=== PATIENT | female | born 1945 | race Caucasian/White ===

== ENCOUNTER 2017-12-12 16:01 | Outpatient (RCR) | payer MEDICARE, OTHER, SELFPAY ==
--- NOTE | 2017-12-12 17:52 | PT.OIE ---
Current Diagnoses Stiffness of right knee, not elsewhere classified (12/12/17) Stiffness of left ankle, not elsewhere classified (12/12/17) Muscle weakness (generalized) (12/12/17) Other abnormalities of gait and mobility (12/12/17) Presence of right artificial knee joint (12/12/17) Presence of left artificial ankle joint (12/12/17) Provider Visit Care Team Role Provider Type Raghavendra Deleon MD Family Provider Physician Primary Care Provider Specialty: Internal Medicine Address: [address] [place] [address], [id number] Email: Yan Main MD Attending Provider Non-Staff Referring Provider Specialty: Medical Address: [address] [place] [address], [id number] Email: Physical Therapy Initial Evaluation PT-OP-A Visit Information Start: 12/12/17 16:52 Freq: Status: Active Protocol: Document 12/12/17 16:10 DCW (Rec: 12/12/17 17:52 DC [id number]) Out-Patient Physical Therapy Visit Information Visit Information Visit Type Initial Evaluation Visit Note Pt at [facility] after receiving PT while in SNF Visit Start Time 16:10 Visit Stop Time 16:45 Total Visit Minutes 35 Visit Number 1 Number of DATA CENTER OPERATOR Visits 0 Evaluation Information Evaluation Date 12/12/17 PT-OP-B Current Condition Start: 12/12/17 16:52 Freq: Status: Active Protocol: Document 12/12/17 16:10 DCW (Rec: 12/12/17 17:52 DCW [id number]) Current Condition History of Current Condition Onset Date 07/05/17 Current Complaints Knee stiffness and weakness, ankle stiffness and weakness, gait difficulty History of Current Condition Pt is a 72 year old female who underwent a R TKA on 07/05/17. Pt reports that she twisted her knee on 06/18/17, and after going to the hospital, was discharged to an assisted living facility until the date of her surgery. Her TKA also reportedly required a tendon replacement, and she was therefore NWB for 3 months following her surgery, and was living in [facility]. She began weight- bearing on 4/18/18, and reports she was attending PT 2x/week while living there. Unfortunately, she discharged from [facility] when her daughter recently , and she returned home two weeks ago, and admits she has not been keeping up with her HEP, but will get back to her normal routine. Complicating her recovery is the fact that she is has been using a SPC over the past 5 years s/p left ankle replacement. Pt currently wears an AFO for stability. 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 Prior Treatments and Tests PT while at [facility] SN[facility] Treatment Goals Patient/Caregiver Goals Really, my only goal is to walk without this cane. Prior Functional Status Baseline Function- Gait Ambulation with SPC, occasional use of FWW at home. Baseline Function- Other Pt lives alone, has a screw machine tender come on Tuesdays for cleaning, and has someone come help with housework three times a week. Current Functional Impairments (Reported) Functional Limitations- Mobility/Gait Difficulty sequencing SPC, Trendelenberg gait pattern, bilateral foot external rotation PT-OP-C Subjective Start: 12/12/17 16:52 Freq: Status: Active Protocol: Document 12/12/17 16:10 DCW (Rec: 12/12/17 17:52 DCW [id number]) OP-PT Pain Assessment Pain Assessment Grid Paper Pain Assessment Grid Completed No PT-OP-G Mobility & Gait Start: 12/12/17 16:52 Freq: Status: Active Protocol: Document 12/12/17 16:10 DCW (Rec: 12/12/17 17:52 DCW [id number]) OP Gait Assessment Gait Gait Assistance Required: Contact Guard Assist Distance (Feet) (feet) 150 Able to Maintain Weight Bearing Status Yes During Gait Assistive Devices Assistive Device Gait Belt Straight Cane Orthotic/Prosthetic Devices or Brace: Yes Gait Deviations General Gait Pattern Antalgic Decreased Stride Length Decreased Feet Clearance Lateral Trunk Lean Factors Limiting Gait Function Factors Limiting Gait Function Decreased Strength Limited Range of Motion Poor Balance PT-OP-K Range of Motion Start: 12/12/17 16:52 Freq: Status: Active Protocol: Document 12/12/17 16:10 DCW (Rec: 12/12/17 17:52 DCW [id number]) Knee Goniometric Range of Motion Knee Measured in Degrees Right Patient Position Supine Flexion Active (degrees) 114 Flexion Passive (degrees) 122 Extension Active (degrees) 0 Extension Passive (degrees) 0 Knee ROM Limitations Knee ROM Limitations Soft Tissue Tightness Pain Swelling PT-OP-M Strength Start: 12/12/17 16:52 Freq: Status: Active Protocol: Document 12/12/17 16:10 DCW (Rec: 12/12/17 17:52 DCW [id number]) Hip Strength Hip Manual Muscle Testing Right Flexion (L2) 4- Good- Abduction 5 Normal Adduction 5 Normal Left Flexion (L2) 4 Good Abduction 5 Normal Adduction 5 Normal Knee Strength Knee Manual Muscle Testing Right Flexion (S2) 4+ Good+ Extension (L3) 4 Good Left Flexion (S2) 5 Normal Extension (L3) 5 Normal PT-OP-T Assessment and Plan Start: 12/12/17 16:52 Freq: Status: Active Protocol: Document 12/12/17 16:10 DCW (Rec: 12/12/17 17:52 DCW [id number]) Physical Therapy Assessment Rehab Potential Rehabilitation Potential Good Evaluation Complexity Number of Personal Factors/Comorbidities 3 or More Number of Body Systems Impaired 4 or More Clinical Presentation at Evaluation Unstable Impairments Impairments Activity Tolerance Balance Coordination Functional Activities Gait Posture ROM Soft Tissue Mobility Strength Other Concerns Fall Risk Moderate Barriers to Rehabilitation High fear of falling, poor cane sequencing, previous left ankle replacement, scoliosis, extended NWB recovery following TKA Goals Four Impairment Gait Short Term Goal (STG) Pt to ambulate with correct sequencing using SPC 100% of the time STG Duration 12/26/17 Repeat Chief Goal (LTG) Pt to eliminate trendelenberg gait pattern LTG Duration 02/06/18 Three Impairment Strength Correction Goal (LTG) Pt LE MMT Grossly 4+/5 LTG Duration 02/06/18 Two Impairment Knee ROM Correction Goal (LTG) Pt to display right knee active flexion to 125? and passive flexion to 135? LTG Duration 02/06/18 One Impairment [place] on SPC Short Term Goal (STG) Pt to ambulate 200' SPA without assistive devices STG Duration 01/09/18 Repeat Chief Goal (LTG) Pt to ambulate community distances independently LTG Duration 02/06/18 Assessment Summary Assessment Pt presents six months s/p R TKA, including being NWB over the first three months of recovery. Pt has mildly limited ROM and strength, and gait deficiencies secondary to her right knee replacement, a left ankle replacement (s/p 5 years), scoliosis causing a leg-length discrepancy, and a trendelenberg gait pattern. Patient reports her only goal is to ambulate without her cane, although she has been using it for the past five years, ever since her ankle replacement. Additionally, pt uses an ankle brace for left ankle stability, and displays a significant fear of falling, as demonstrated by her requesting assistance to walk to and from her vehicle in the parking lot. Pt should benefit from skilled therapy focusing on strength and ROM, as well as gait and balance training. Physical Therapy Plan Frequency and Duration Frequency of Treatment 2x/Week Duration of Treatment 12 weeks Plan of Care Start Date 12/12/17 Plan of Care End Date 03/06/18 Therapeutic Interventions Therapeutic Interventions Aquatic Therapy Balance Training Gait Training Home Exercise Program Joint Mobilizations Manual Therapy Patient/Caregiver Education Self-Care/Home Management Soft Tissue Mobilization Therapeutic Activities Therapeutic Exercises Modalities Cold Pack/Ice Massage Electric Stimulation Hot Packs Ultrasound Next Visit Focus/Plan Next Note Type Treatment Note Next Visit Plan Strengthening, Balance training, gait training.
--- NOTE | 2017-12-12 17:53 | PT.OPPOC ---
Current Diagnoses Stiffness of right knee, not elsewhere classified (12/12/17) Stiffness of left ankle, not elsewhere classified (12/12/17) Muscle weakness (generalized) (12/12/17) Other abnormalities of gait and mobility (12/12/17) Presence of right artificial knee joint (12/12/17) Presence of left artificial ankle joint (12/12/17) Provider Visit Care Team Role Provider Type Raghavendra Deleon MD Family Provider Physician Primary Care Provider Specialty: Internal Medicine Address: [address] [place] [address], [id number] Email: Yan Main MD Attending Provider Non-Staff Referring Provider Specialty: Medical Address: [address] [place] [address], [id number] Email: Plan Of Care PT-OP-T Assessment and Plan Start: 12/12/17 16:52 Freq: Status: Active Protocol: Document 12/12/17 16:10 DCW (Rec: 12/12/17 17:52 DCW [id number]) Physical Therapy Assessment Rehab Potential Rehabilitation Potential Good Evaluation Complexity Number of Personal Factors/Comorbidities 3 or More Number of Body Systems Impaired 4 or More Clinical Presentation at Evaluation Unstable Impairments Impairments Activity Tolerance Balance Coordination Functional Activities Gait Posture ROM Soft Tissue Mobility Strength Other Concerns Fall Risk Moderate Barriers to Rehabilitation High fear of falling, poor cane sequencing, previous left ankle replacement, scoliosis, extended NWB recovery following TKA Goals Four Impairment Gait Short Term Goal (STG) Pt to ambulate with correct sequencing using SPC 100% of the time STG Duration 12/26/17 Group Home Goal (LTG) Pt to eliminate trendelenberg gait pattern LTG Duration 02/06/18 Three Impairment Strength Group Home Goal (LTG) Pt LE MMT Grossly 4+/5 LTG Duration 02/06/18 Two Impairment Knee ROM Draw[employer] In [employer] Goal (LTG) Pt to display right knee active flexion to 125? and passive flexion to 135? LTG Duration 02/06/18 One Impairment [place] on SPC Short Term Goal (STG) Pt to ambulate 200' SPA without assistive devices STG Duration 01/09/18 [employer] In [employer] Goal (LTG) Pt to ambulate community distances independently LTG Duration 02/06/18 Assessment Summary Assessment Pt presents six months s/p R TKA, including being NWB over the first three months of recovery. Pt has mildly limited ROM and strength, and gait deficiencies secondary to her right knee replacement, a left ankle replacement (s/p 5 years), scoliosis causing a leg-length discrepancy, and a trendelenberg gait pattern. Patient reports her only goal is to ambulate without her cane, although she has been using it for the past five years, ever since her ankle replacement. Additionally, pt uses an ankle brace for left ankle stability, and displays a significant fear of falling, as demonstrated by her requesting assistance to walk to and from her vehicle in the parking lot. Pt should benefit from skilled therapy focusing on strength and ROM, as well as gait and balance training. Physical Therapy Plan Frequency and Duration Frequency of Treatment 2x/Week Duration of Treatment 12 weeks Plan of Care Start Date 12/12/17 Plan of Care End Date 03/06/18 Therapeutic Interventions Therapeutic Interventions Aquatic Therapy Balance Training Gait Training Home Exercise Program Joint Mobilizations Manual Therapy Patient/Caregiver Education Self-Care/Home Management Soft Tissue Mobilization Therapeutic Activities Therapeutic Exercises Modalities Cold Pack/Ice Massage Electric Stimulation Hot Packs Ultrasound Next Visit Focus/Plan Next Note Type Treatment Note Next Visit Plan Strengthening, Balance training, gait training. Plan of Care Dates Plan of Care Start Date 12/12/17 Plan of Care End Date 03/06/18 Please Sign and Return: I have reviewed this Plan of Care and certify that the skilled therapy services above are required to meet the patient?s needs. Physician Signature Date Printed Name and Credentials Clinical Instructor Signature Printed Name and Credentials
--- NOTE | 2018-03-25 11:56 | PT.OPDS ---
Current Diagnoses Stiffness of right knee, not elsewhere classified (12/12/17) Stiffness of left ankle, not elsewhere classified (12/12/17) Muscle weakness (generalized) (12/12/17) Other abnormalities of gait and mobility (12/12/17) Presence of right artificial knee joint (12/12/17) Presence of left artificial ankle joint (12/12/17) Provider Visit Care Team Role Provider Type Raghavendra Deleon MD Family Provider Physician Primary Care Provider Specialty: Internal Medicine Address: [address] [place] [address], [id number] Email: Yan Main MD Attending Provider Non-Staff Referring Provider Specialty: Medical Address: [address] [place] [address], [facility] Email: Visit Number Visit Number 1 Discharge Summary PT-OP-B Current Condition Start: 12/12/17 16:52 Freq: Status: Active Protocol: Document 12/12/17 16:10 DCW (Rec: 12/12/17 17:52 DCW [id number]) Current Condition History of Current Condition Onset Date 07/05/17 Current Complaints Knee stiffness and weakness, ankle stiffness and weakness, gait difficulty History of Current Condition Pt is a 72 year old female who underwent a R TKA on 07/05/17. Pt reports that she twisted her knee on 06/18/17, and after going to the hospital, was discharged to an assisted living facility until the date of her surgery. Her TKA also reportedly required a tendon replacement, and she was therefore NWB for 3 months following her surgery, and was living in [facility]. She began weight- bearing on 10/03/17, and reports she was attending PT 2x/week while living there. Unfortunately, she discharged from [facility] when her daughter recently , and she returned home two weeks ago, and admits she has not been keeping up with her HEP, but will get back to her normal routine. Complicating her recovery is the fact that she is has been using a SPC over the past 5 years s/p left ankle replacement. Pt currently wears an AFO for stability. 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 Prior Treatments and Tests PT while at [facility] Treatment Goals Patient/Caregiver Goals Really, my only goal is to walk without this cane. Prior Functional Status Baseline Function- Gait Ambulation with SPC, occasional use of FWW at home. 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 Current Functional Impairments (Reported) Functional Limitations- Mobility/Gait Difficulty sequencing SPC, Trendelenberg gait pattern, bilateral foot external rotation PT-OP-C Subjective Start: 12/12/17 16:52 Freq: Status: Active Protocol: Document 12/12/17 16:10 DCW (Rec: 12/12/17 17:52 DCW [id number]) OP-PT Pain Assessment Pain Assessment Grid Paper Pain Assessment Grid Completed No PT-OP-G Mobility & Gait Start: 12/12/17 16:52 Freq: Status: Active Protocol: Document 12/12/17 16:10 DCW (Rec: 12/12/17 17:52 DCW [id number]) OP Gait Assessment Gait Gait Assistance Required: Contact Guard Assist Distance (Feet) 150 Able to Maintain Weight Bearing Status Yes During Gait Assistive Devices Assistive Device Gait Belt Straight Cane Orthotic/Prosthetic Devices or Brace: Yes Gait Deviations General Gait Pattern Antalgic Decreased Stride Length Decreased Feet Clearance Lateral Trunk Lean Factors Limiting Gait Function Factors Limiting Gait Function Decreased Strength Limited Range of Motion Poor Balance PT-OP-K Range of Motion Start: 12/12/17 16:52 Freq: Status: Active Protocol: Document 12/12/17 16:10 DCW (Rec: 12/12/17 17:52 DCW [id number]) Knee Goniometric Range of Motion Knee Measured in Degrees Right Patient Position Supine Flexion Active (degrees) 114 Flexion Passive (degrees) 122 Extension Active (degrees) 0 Extension Passive (degrees) 0 Knee ROM Limitations Knee ROM Limitations Soft Tissue Tightness Pain Swelling PT-OP-M Strength Start: 12/12/17 16:52 Freq: Status: Active Protocol: Document 12/12/17 16:10 DCW (Rec: 12/12/17 17:52 DCW [id number]) Hip Strength Hip Manual Muscle Testing Right Flexion (L2) 4- Good- Abduction 5 Normal Adduction 5 Normal Left Flexion (L2) 4 Good Abduction 5 Normal Adduction 5 Normal Knee Strength Knee Manual Muscle Testing Right Flexion (S2) 4+ Good+ Extension (L3) 4 Good Left Flexion (S2) 5 Normal Extension (L3) 5 Normal PT-OP-T Assessment and Plan Start: 12/12/17 16:52 Freq: Status: Active Protocol: Document 03/25/18 11:54 DCW (Rec: 03/25/18 11:56 DCW [id number]) Physical Therapy Assessment Goals Four Impairment Gait Short Term Goal (STG) Pt to ambulate with correct sequencing using SPC 100% of the time STG Duration 12/26/17 Medical Interpreter Goal (LTG) Pt to eliminate trendelenberg gait pattern LTG Duration 02/06/18 Three Impairment Strength Medical Interpreter Goal (LTG) Pt LE MMT Grossly 4+/5 LTG Duration 02/06/18 Two Impairment Knee ROM Half-Way Goal (LTG) Pt to display right knee active flexion to 125? and passive flexion to 135? LTG Duration 02/06/18 One Impairment [place] on SPC Short Term Goal (STG) Pt to ambulate 200' SPA without assistive devices STG Duration 01/09/18 Half-Way Goal (LTG) Pt to ambulate community distances independently LTG Duration 02/06/18 Physical Therapy Plan Discharge Physical Therapy Discharge Reasons No Longer Attending PT Discharge Comments Following her initial evaluation, pt cancelled all scheduled appointments, and has now not been seen in more than three months. Pt will be discharged from skilled therapy at this time.
== END 2018-03-29 15:52 ==
LOC: PHYS 16:01
PROVIDERS: Family Provider Internal Medicine; PCP Internal Medicine; Referring Provider Orthopaedic Surgery; Visit Provider Orthopaedic Surgery
DX: Z96.651 Presence of right artificial knee joint (principal); M62.81 Muscle weakness (generalized); R26.89 Other abnormalities of gait and mobility; M25.672 Stiffness of left ankle, not elsewhere classified; M25.661 Stiffness of right knee, not elsewhere classified; Z96.662 Presence of left artificial ankle joint
CPT/HCPCS: 97163

== ENCOUNTER 2018-03-07 20:10 | Inpatient (IN) | payer MEDICARE, OTHER, SELFPAY ==
[2018-03-07 20:17] VITALS: BP 169/81; PULSE 67; RESP 20; TEMP 36.6; O2SAT 99
--- NOTE | 2018-03-07 20:30 | ED.WEAKNESS ---
HPI - Weakness General Chief complaint: Weakness Stated complaint: Weakness Time Seen by Provider: 03/07/18 20:16 Source: family and EMS Mode of arrival: EMS History of Present Illness HPI Narrative: Patient is a 72-year-old female who was brought in by EMS for weakness. She is a poor historian. According to friends she has been sitting on her toilet for probably over 24 hr. No evidence of falling. For the last 2 days she has not had anything to eat or drink or taken any of her medications it is possible she has been on toilet for 2 days. Her son does live in [place]. She does have a history of depression her daughter suddenly in October and she has not quite been the same. She denies any suicidal ideations. She really has no complaints. Although she does fall asleep frequently during our conversation. I did discuss with the son. He says that she was seen recently by primary care provider this week and medications were changed. Patient says that she was taken off her anxiety medications and the son thinks maybe blood pressure medications were adjusted. Son said that he was speaking to her last evening on the cell phone and she was up and moving around. She overall just feels as and could not get herself up off the toilet. She does require a brace on her left ankle which she said she did not have at the time which also contributed to her inability to get up. MD Complaint: generalized weakness Related Data Home Medications Medication Instructions Recorded Confirmed LEVOTHYROXINE SODIUM (#LEVOTHROID 0.15 mg PO QDAY #0 12/19/11 02/19/18 [facility]) levothyroxine 150 mcg capsule 150 mcg PO DAILY 12/18/17 02/19/18 Previous Rx's Medication Instructions Recorded meloxicam [Mobic] 15 mg PO QDAY #30 tab 01/20/17 nitrofurantoin monohyd/m-cryst 100 mg PO BID #14 cap 06/16/17 [Macrobid] oxycodone 0 mg PO Q4HP PRN #40 tab 06/19/17 imipramine HCl [Tofranil] 200 mg PO HS #120 tab 07/02/17 temazepam 15 mg capsule 15 mg PO BEDTIME #60 cap 02/08/18 bupropion HCl XL 150 mg 24 hr 150 mg PO QAM #30 tab 02/25/18 tablet, extended release Allergies Allergy/AdvReac Type Severity Reaction Status Date / Time ciprofloxacin Allergy Mild Verified 03/07/18 22:39 Sulfa (Sulfonamide Allergy Mild Verified 03/07/18 22:39 Antibiotics) Beta-Blockers Allergy Unknown Verified 03/07/18 22:39 (Beta-Adrenergic Bloc zolpidem [ZOLPIDEM] AdvReac Intermediate MAKES ME Verified 03/07/18 22:39 GOOFY Review of Systems Review of Systems All systems reviewed & are unremarkable except as noted in HPI and below Constitutional Denies chills, Denies fever(s) and Reports poor appetite Eyes Denies change in vision, Denies eye discharge, Denies irritation and Denies loss of vision Cardiovascular Denies chest pain, Denies irregular heart rhythm, Denies lightheadedness, Denies palpitations and Denies orthopnea Gastrointestinal Gastrointestinal: Denies abdominal pain, Denies change in bowel habits, Denies diarrhea, Denies nausea and Denies vomiting Musculoskeletal Denies back pain, Denies muscle weakness, Denies numbness and Denies tingling Integumentary/Breasts Denies pruritus, Denies erythema, Denies rash and Denies wounds Neurologic Denies loss of vision, Denies numbness and Denies tingling Endocrine Denies palpitations PFSH Medical History Depression (Acute) Hypothyroid (Acute) Social History household members: none lives independently: Yes caregiver/support person: No Smoking Status: Never smoker alcohol intake: never Exam Initial Vital Signs Initial Vital Signs: Vital Signs Temperature 97.9 F 03/07/18 20:17 Pulse Rate 67 03/07/18 20:17 Respiratory Rate 20 03/07/18 20:17 Blood Pressure 169/81 H 03/07/18 20:17 Pulse Oximetry 99 03/07/18 20:17 Const General: frail appearing Nutritional Appearance: average body habitus Orientation: confused [facility] Head: normal to inspection, normocephalic and atraumatic Eyes General: appearance normal, both eyes and all related structures Pupils: PERRL EOM: EOM intact bilaterally Neck Neck: normal visual inspection, full ROM and no meningeal signs Chest Chest: normal inspection of the chest and normal palpation of entire chest wall Resp Effort & Inspection: normal respiratory effort Auscultation: clear to auscultation bilaterally, no rales, no rhonchi and no wheezes Cardio Rhythm: regular rhythm Heart Sounds: S1 normal and S2 normal GI Palpation: No firm, No mass and No tender Percussion: normal to percussion Back/Spine/Pelvis Back: normal to inspection Skin Other: no open sores on gluteal region but some erythema at sites of pressure from toilet seat Course Orders Ordered: ED Orders 03/07/18 21:02 EKG-12 Lead Stat 03/07/18 21:31 Acetaminophen Stat Complete Blood Count AUTO DIFF Stat Comprehensive Metabolic Panel Stat Ethanol (ETOH) Stat Lactate (Lactic Acid) Stat Partial Thromboplastin Time Stat Prothrombin Time INR Stat Salicylate Stat Thyroid Stimulating Hormone Stat Troponin & CK Cardiac Panel Stat 03/07/18 22:00 Blood Culture Stat 03/07/18 22:35 Urinalysis and Microscopic Stat Urine Culture Stat Urine Drug Screen, Rapid Stat 03/07/18 23:52 Consult to Physician Routine 03/08/18 06:00 Basic Metabolic Panel Stat Complete Blood Count AUTO DIFF Stat Creatine Kinase Stat Sodium Chloride (Normal Saline 0.9%) 1,000 mls @ 75 mls/hr IV CONT MOJGAN Potassium Chloride 60 meq/ (Sodium Chloride) 530 mls @ 88.333 mls/hr IV NOW ONE Stop: 03/08/18 05:51 Discontinued Medications Sodium Chloride (Normal Saline 0.9%) 1,000 mls @ 1,000 mls/hr IV CONT MOJGAN Last Infusion: 03/07/18 22:53 Dose: 0 mls/hr Admin: 03/07/18 21:30 Dose: 1,000 mls/hr Ceftriaxone Sodium/Dextrose (Rocephin) 1 gm in 50 mls @ 100 mls/hr IV NOW ONE Stop: 03/08/18 00:21 Consultations Consultation #1: Morris Time: :18 Vital Signs - 8 hr 03/07/18 20:17 03/07/18 22:24 03/07/18 23:01 Temperature 97.9 F Pulse Rate 67 71 71 Respiratory Rate 20 17 17 Blood Pressure 169/81 H Blood Pressure [Left Arm] 147/81 H 157/71 H Pulse Oximetry 99 100 100 03/08/18 00:10 Temperature 98.7 F Pulse Rate 68 Respiratory Rate 16 Blood Pressure 152/80 H Blood Pressure [Left Arm] Pulse Oximetry 99 MDM - Weakness Lab Data Attestation: I reviewed the patient's lab results. Result diagrams: 03/07/18 21:31 03/07/18 21:31 Lab Results 03/07/18 03/07/18 03/07/18 Range/Units 21:31 21:31 21:31 WBC 9.2 (4.5-11.0) X10^3/uL RBC 4.12 (4.0-5.2) X10^6/uL Hgb 12.8 (12.0-16.0) g/dL Hct 36.6 (36-46) % MCV 88.9 (80-100) fL MCH 31.1 (26-34) PG MCHC 35.0 (30-36) % RDW 13.4 (11.6-14.8) % Plt Count 274 (150-400) X10^3/uL Neut % (Auto) 81.1 H (50-75) % Lymph % (Auto) 4.6 L (25-40) % [place] % (Auto) 13.8 (3-14) % Eos % (Auto) 0.4 L (2-4) % Baso % (Auto) 0.1 (0-2) % Neut # (Auto) 7500 H (6472-2735) /uL PT 13.3 H (10.1-12.7) SECONDS INR 1.2 (0.9-1.3) APTT 30 (26.4-36.2) SECONDS Sodium 121 L (137-145) mmol/L Potassium 2.8 L (3.4-5.1) mmol/L Chloride 82 L (98-107) mmol/L Carbon Dioxide 28 (22-32) mmol/L BUN 17 (7-17) mg/dL Creatinine 0.60 (0.52-1.04) mg/dL Estimated GFR > 60.0 (>60) mL/min BUN/Creatinine Ratio 28.3 H (6-22) Glucose 114 H (80-110) mg/dL Lactate (0.7-2.1) mmol/L Calcium 10.0 (8.4-10.2) mg/dL Total Bilirubin 0.9 (0.2-1.3) mg/dL AST 93 H (14-36) IU/L ALT 44 (9-52) IU/L Alkaline Phosphatase 100 (38-126) U/L Total Creatine Kinase 2075 H (30-135) U/L CK-MB (CK-2) 23.60 H (<2.37) ng/mL CK-MB (CK-2) Rel Index 1.1 L (1.5-5.0) % Troponin I 0.102 H (0.01-0.034) ng/mL Total Protein 7.4 (6.3-8.2) g/dL Albumin 4.4 (3.5-5.0) g/dL Globulin 3.0 (1.7-4.1) g/dL Albumin/Globulin Ratio 1.5 (1.0-2.8) TSH (0.47-4.68) uIU/mL Urine Color Urine Appearance Urine pH (4.5-8.0) Ur Specific [place] (1.000-1.035) Urine Protein (Negative) Urine Glucose (UA) (Normal) g/dL Urine Ketones (NEGATIVE) Urine Occult Blood (Negative) Urine Nitrate (Negative) Urine Bilirubin (NEGATIVE) Urine Urobilinogen (0.2) E.U./dL Ur Leukocyte Esterase (NEGATIVE) Urine RBC (0-5/HPF) Urine WBC (0-5/HPF) Ur Squamous Epith Cells Urine Bacteria (None) Ur Culture Indicated? Micro UA Comment Salicylates < 1.0 (<20) mg/dL Urine Opiates Screen (Negative) Ur Oxycodone Screen (Negative) Urine Methadone Screen (Negative) Acetaminophen < 10 L (10-30) ug/mL Ur Barbiturates Screen (Negative) U Tricyclic Antidepress (Negative) Ur Phencyclidine Scrn (Negative) Ur Amphetamines Screen (Negative) U Methamphetamines Scrn (Negative) Ur MDMA Scrn (Ecstasy) (Negative) U Benzodiazepines Scrn (Negative) Urine Cocaine Screen (Negative) U Marijuana (THC) Screen (Negative) Ethyl Alcohol < 10 mg/dL 03/07/18 03/07/18 03/07/18 Range/Units 21:31 21:31 22:35 WBC (4.5-11.0) X10^3/uL RBC (4.0-5.2) X10^6/uL Hgb (12.0-16.0) g/dL Hct (36-46) % MCV (80-100) fL MCH (26-34) PG MCHC (30-36) % RDW (11.6-14.8) % Plt Count (150-400) X10^3/uL Neut % (Auto) (50-75) % Lymph % (Auto) (25-40) % [place] % (Auto) (3-14) % Eos % (Auto) (2-4) % Baso % (Auto) (0-2) % Neut # (Auto) (7742-5438) /uL PT (10.1-12.7) SECONDS INR (0.9-1.3) APTT (26.4-36.2) SECONDS Sodium (137-145) mmol/L Potassium (3.4-5.1) mmol/L Chloride (98-107) mmol/L Carbon Dioxide (22-32) mmol/L BUN (7-17) mg/dL Creatinine (0.52-1.04) mg/dL Estimated GFR (>60) mL/min BUN/Creatinine Ratio (6-22) Glucose (80-110) mg/dL Lactate 1.2 (0.7-2.1) mmol/L Calcium (8.4-10.2) mg/dL Total Bilirubin (0.2-1.3) mg/dL AST (14-36) IU/L ALT (9-52) IU/L Alkaline Phosphatase (38-126) U/L Total Creatine Kinase (30-135) U/L CK-MB (CK-2) (<2.37) ng/mL CK-MB (CK-2) Rel Index (1.5-5.0) % Troponin I (0.01-0.034) ng/mL Total Protein (6.3-8.2) g/dL Albumin (3.5-5.0) g/dL Globulin (1.7-4.1) g/dL Albumin/Globulin Ratio (1.0-2.8) TSH 0.38 L (0.47-4.68) uIU/mL Urine Color Urine Appearance Urine pH (4.5-8.0) Ur Specific [place] (1.000-1.035) Urine Protein (Negative) Urine Glucose (UA) (Normal) g/dL Urine Ketones (NEGATIVE) Urine Occult Blood (Negative) Urine Nitrate (Negative) Urine Bilirubin (NEGATIVE) Urine Urobilinogen (0.2) E.U./dL Ur Leukocyte Esterase (NEGATIVE) Urine RBC (0-5/HPF) Urine WBC (0-5/HPF) Ur Squamous Epith Cells Urine Bacteria (None) Ur Culture Indicated? Micro UA Comment Salicylates (<20) mg/dL Urine Opiates Screen Negative (Negative) Ur Oxycodone Screen Negative (Negative) Urine Methadone Screen Negative (Negative) Acetaminophen (10-30) ug/mL Ur Barbiturates Screen Negative (Negative) U Tricyclic Antidepress Positive H (Negative) Ur Phencyclidine Scrn Negative (Negative) Ur Amphetamines Screen Negative (Negative) U Methamphetamines Scrn Negative (Negative) Ur MDMA Scrn (Ecstasy) Negative (Negative) U Benzodiazepines Scrn Positive H (Negative) Urine Cocaine Screen Negative (Negative) U Marijuana (THC) Screen Negative (Negative) Ethyl Alcohol mg/dL 03/07/18 Range/Units 22:35 WBC (4.5-11.0) X10^3/uL RBC (4.0-5.2) X10^6/uL Hgb (12.0-16.0) g/dL Hct (36-46) % MCV (80-100) fL MCH (26-34) PG MCHC (30-36) % RDW (11.6-14.8) % Plt Count (150-400) X10^3/uL Neut % (Auto) (50-75) % Lymph % (Auto) (25-40) % [place] % (Auto) (3-14) % Eos % (Auto) (2-4) % Baso % (Auto) (0-2) % Neut # (Auto) (3436-6438) /uL PT (10.1-12.7) SECONDS INR (0.9-1.3) APTT (26.4-36.2) SECONDS Sodium (137-145) mmol/L Potassium (3.4-5.1) mmol/L Chloride (98-107) mmol/L Carbon Dioxide (22-32) mmol/L BUN (7-17) mg/dL Creatinine (0.52-1.04) mg/dL Estimated GFR (>60) mL/min BUN/Creatinine Ratio (6-22) Glucose (80-110) mg/dL Lactate (0.7-2.1) mmol/L Calcium (8.4-10.2) mg/dL Total Bilirubin (0.2-1.3) mg/dL AST (14-36) IU/L ALT (9-52) IU/L Alkaline Phosphatase (38-126) U/L Total Creatine Kinase (30-135) U/L CK-MB (CK-2) (<2.37) ng/mL CK-MB (CK-2) Rel Index (1.5-5.0) % Troponin I (0.01-0.034) ng/mL Total Protein (6.3-8.2) g/dL Albumin (3.5-5.0) g/dL Globulin (1.7-4.1) g/dL Albumin/Globulin Ratio (1.0-2.8) TSH (0.47-4.68) uIU/mL Urine Color [place] Urine Appearance Slightly cloudy Urine pH 6.0 (4.5-8.0) Ur Specific [place] 1.015 (1.000-1.035) Urine Protein Negative (Negative) Urine Glucose (UA) Negative (Normal) g/dL Urine Ketones Negative (NEGATIVE) Urine Occult Blood Trace-intact (Negative) Urine Nitrate Positive H (Negative) Urine Bilirubin Negative (NEGATIVE) Urine Urobilinogen 0.2 (0.2) E.U./dL Ur Leukocyte Esterase 2+ H (NEGATIVE) Urine RBC 0-1/hpf (0-5/HPF) Urine WBC 1-5/hpf (0-5/HPF) Ur Squamous Epith Cells 0-1 /hpf Urine Bacteria Many (>30) H (None) Ur Culture Indicated? Not Reportable Micro UA Comment Not Reportable Salicylates (<20) mg/dL Urine Opiates Screen (Negative) Ur Oxycodone Screen (Negative) Urine Methadone Screen (Negative) Acetaminophen (10-30) ug/mL Ur Barbiturates Screen (Negative) U Tricyclic Antidepress (Negative) Ur Phencyclidine Scrn (Negative) Ur Amphetamines Screen (Negative) U Methamphetamines Scrn (Negative) Ur MDMA Scrn (Ecstasy) (Negative) U Benzodiazepines Scrn (Negative) Urine Cocaine Screen (Negative) U Marijuana (THC) Screen (Negative) Ethyl Alcohol mg/dL ECG Data Attestation: I personally reviewed and interpreted this ECG as follows: Prior ECG tracings: available for review Interpretation: Normal sinus rhythm slight T-wave inversion noted in V3 no ST changes previous EKG is from 2010. T-wave changes are new. MDM Narrative Medical decision making narrative: Patient is noted to be hyponatremic 121 she does tend to run on the low side but usually in the 130s. She has not had anything to eat or drink in last 2 days. Thinks that she is likely dehydrated. She is also known to be hypokalemic as well. Along with elevated CPK is 2075. Is no leukocytosis normal lactic acid she does have nitrates in her urine, and her urine was noted to be quite foul smelling per nurses. Blood cultures pending will treat for possible UTI with Rocephin. She has no sign of head injury or trauma she is able to respond and follow commands I do not appreciate any focal deficits. Dr. Caceres has been notified he accepts patient for admission. Recommend normal saline 75 an hour. She got about 500 bolus initially in the ED. Discharge Plan Departure Patient Disposition: Admitted as Observation Clinical Impression: Acute hyponatremia, Acute hypokalemia, Elevated CPK Discharge Date/Time: 03/08/18 00:11 Interventions: ED Discharge Assessment Last Done: 03/07/18 23:08 Admit Date/Time: 03/07/18 22:31 Admit Provider: Raz Caceres
[2018-03-07] MEDS: SODIUM CHLORIDE 0.9% 1,000 ML 1000 ML IV (21:30)
--- NOTE | 2018-03-07 21:33 | PC.NURSE ---
turned pt to assess skin on bottom. bilateral gluteal skin redness/ irritation. no open sores noted at this time. provider aware.
[2018-03-07 21:35] LABS: Add Manual Diff / Slide Review NO; Basophils Percent Auto 0.1 % (0-2); Eosinophils Percent Auto 0.4 % (2-4); Hematocrit 36.6 % (36-46); Hemoglobin 12.8 g/dL (12.0-16.0); Lymphocytes Percent Auto 4.6 % (25-40); Mean Corpuscular Hemoglobin 31.1 PG (26-34); Mean Corpuscular Volume 88.9 fL (80-100); Monocytes Percent Auto 13.8 % (3-14); Neutrophils Absolute Auto 7500 /uL (3000-5900); Neutrophils Percent Auto 81.1 % (50-75); Platelet Count 274 X10^3/uL (150-400); Red Blood Cell Count 4.12 X10^6/uL (4.0-5.2); Red Cell Distribution Width 13.4 % (11.6-14.8); White Blood Cell Count 9.2 X10^3/uL (4.5-11.0)
[2018-03-07 21:47] LABS: INR 1.2 (0.9-1.3); Prothrombin Time 13.3 SECONDS (10.1-12.7)
[2018-03-07 21:50] LABS: Acetaminophen < 10 ug/mL (10-30); Alanine Aminotransferase 44 IU/L (9-52); Albumin 4.4 g/dL (3.5-5.0); Albumin Globulin Ratio 1.5 (1.0-2.8); Alkaline Phosphatase 100 U/L (38-126); Aspartate Aminotransferase 93 IU/L (14-36); BUN Creatinine Ratio 28.3 (6-22); Bilirubin Total 0.9 mg/dL (0.2-1.3); Blood Urea Nitrogen 17 mg/dL (7-17); Carbon Dioxide 28 mmol/L (22-32); Chloride 82 mmol/L (98-107); Estimated Glomerular Filt Rate > 60.0 mL/min (>60); Ethanol (ETOH) < 10 mg/dL; Glucose 114 mg/dL (80-110); PTT Partial Thromboplastin Tim 30 SECONDS (26.4-36.2); Potassium 2.8 mmol/L (3.4-5.1); Sodium 121 mmol/L (137-145); Total Protein 7.4 g/dL (6.3-8.2)
[2018-03-07 21:51] LABS: Lactate (Lactic Acid) 1.2 mmol/L (0.7-2.1)
[2018-03-07 21:56] LABS: HEMOLYSIS 21 (0-50); Salicylate < 1.0 mg/dL (<20)
[2018-03-07 21:58] LABS: Creatine Kinase 2075 U/L (30-135)
[2018-03-07 22:01] LABS: Troponin I 0.102 ng/mL (0.01-0.034)
[2018-03-07 22:24] VITALS: BP 147/81; PULSE 71; RESP 17; O2SAT 100
[2018-03-07 22:28] LABS: CKMB % Relative Index 1.1 % (1.5-5.0)
[2018-03-07 22:38] LABS: Thyroid Stimulating Hormone 0.38 uIU/mL (0.47-4.68)
[2018-03-07 22:51] LABS: Bilirubin Urine UA NEGATIVE (NEGATIVE); Color Urine UA ORANGE; Glucose Urine UA NEGATIVE (Normal); Ketones Urine UA NEGATIVE (NEGATIVE); Leukocyte Esterase Urine UA 2+ (NEGATIVE); Nitrite Urine UA POSITIVE (Negative); Occult Blood Urine UA TRACE-INTACT (Negative); Protein Urine UA NEGATIVE (Negative); Specific Gravity Urine UA 1.015 (1.000-1.035); Urobilinogen Urine UA 0.2 E.U./dL (0.2)
[2018-03-07 22:58] LABS: Appearance Urine UA Slightly Cloudy
[2018-03-07 22:59] LABS: RBC Urine 0-1/HPF (0-5/HPF)
[2018-03-07 23:00] LABS: Bacteria Urine Many (>30); Squamous Epithelial Cell Urine 0-1 /HPF; WBC Urine 1-5/HPF (0-5/HPF)
[2018-03-07 23:01] VITALS: BP 157/71; PULSE 71; RESP 17; O2SAT 100
[2018-03-07 23:01] LABS: Urine Amphetamines Negative (Negative); Urine Cocaine Negative (Negative); Urine Morphine/Opi cutoff 2000 Negative (Negative); Urine Tetrahydrocannabinol Negative (Negative)
[2018-03-07 23:02] LABS: Urine Barbiturates Negative (Negative); Urine Benzodiazepines Positive (Negative); Urine MDMA Negative (Negative); Urine Methadone Negative (Negative); Urine Methamphetamines Negative (Negative); Urine Oxycodone Negative (Negative); Urine Phencyclidine Negative (Negative); Urine Tricyclic Antidepressant Positive (Negative)
[2018-03-08] VITALS (8 sets, daily range): BP systolic 132–158; BP diastolic 69–85; PULSE 64–69; RESP 16–20; TEMP 36.2–37.1; O2SAT 96–99; BMI 34.3
--- NOTE | 2018-03-08 | DI.RAD.S_ITS ---
PROCEDURE: XR CHEST 1V INDICATIONS: Hyponatremia evaluate for pulmonary mass TECHNIQUE: One view of the chest was acquired. COMPARISON: [facility], CHEST 2 VIEW, 08/08/2016, 11:04. [facility], CHEST 2 VIEW, 01/19/2014, 11:46. FINDINGS: Surgical changes and devices: None. Lungs and pleura: No pleural effusions or pneumothorax. Lungs are clear. Mediastinum: Mediastinal contours appear normal. Heart size is normal. Bones and chest wall: No suspicious bony lesions. Overlying soft tissues appear unremarkable. IMPRESSION: Stable appearing convex rightward scoliosis centered at the junction of the middle and lower thirds of the thoracic spine. 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 No pulmonary mass lesion is seen. Limited study, reduced inspiration, no lateral view. Dictated by: Nahum Roy M.D. on 03/08/2018 at 16:59 Approved by: Nahum Roy M.D. on 03/08/2018 at 17:00
[2018-03-08] MEDS: CEFTRIAXONE 1 GM/50 ML FROZ.PIGGY IV (00:52)
[2018-03-08] MEDS: POTASSIUM CHLORIDE 60 MEQ in SODIUM CHLORIDE 0.9% 500 ML 88.333 ML IV (01:27)
[2018-03-08 06:16] LABS: Add Manual Diff / Slide Review NO; Basophils Percent Auto 0.3 % (0-2); Eosinophils Percent Auto 1.6 % (2-4); Hematocrit 34.2 % (36-46); Hemoglobin 11.9 g/dL (12.0-16.0); Lymphocytes Percent Auto 7.6 % (25-40); Mean Corpuscular HGB Conc 34.7 % (30-36); Mean Corpuscular Volume 89.5 fL (80-100); Monocytes Percent Auto 12.4 % (3-14); Neutrophils Absolute Auto 6000 /uL (3000-5900); Neutrophils Percent Auto 78.1 % (50-75); Platelet Count 123 X10^3/uL (150-400); Red Blood Cell Count 3.83 X10^6/uL (4.0-5.2); Red Cell Distribution Width 13.6 % (11.6-14.8); White Blood Cell Count 7.6 X10^3/uL (4.5-11.0)
[2018-03-08 06:18] LABS: BUN Creatinine Ratio 23.3 (6-22); Blood Urea Nitrogen 14 mg/dL (7-17); Calcium 9.1 mg/dL (8.4-10.2); Carbon Dioxide 27 mmol/L (22-32); Chloride 89 mmol/L (98-107); Creatine Kinase 1095 U/L (30-135); Estimated Glomerular Filt Rate > 60.0 mL/min (>60); Glucose 95 mg/dL (80-110); HEMOLYSIS < 15 (0-50); Potassium 3.1 mmol/L (3.4-5.1); Sodium 125 mmol/L (137-145)
--- NOTE | 2018-03-08 06:56 | PC.NURSE ---
Pt arrived via stretcher. transferred to her bed w/2PA. pt very weak. A&O. pt incontinent, PVR this AM 329mls. pt is currently on her bedpan. IVF. call light in reach. bed alarm on.
--- NOTE | 2018-03-08 09:37 | PC.NURSE ---
Addendum entered by Marly Diaz R.N. 03/08/18 14:59: MS - phys therapy in this afternoon, up with fww, gait belt, pt is impulsive, x2 person to steady, as pt has poor balance, even with dangle position, trunk not stable ,able to tsf bsc w/void and then to chair with alarm set. Original Note: AM NOTE - alert, on bedpan w/small qty urine and some incont, able turn in bed but doesn't move her feet or legs easily, some redness l buttock cheek and r groin area, no open areas, barrier cream applied, scattered bruising ue, talkative, oriented, 2+ pedal edema, hr reg64, ra 96%, bs coarse.
[2018-03-08] MEDS: SODIUM CHLORIDE 0.9% 1,000 ML 75 ML IV ×2 (13:36)
--- NOTE | 2018-03-08 14:21 | PT.IIE ---
Medical History (Last Updated 03/08/18 @ 07:00 by Marely Zuluaga RN) Depression (Acute) Hypothyroid (Acute) UTI (urinary tract infection) (Acute) Physical Therapy Inpatient Evaluation/Re-Eval M1 PT/OT-IP Prior Functional Status Start: 03/08/18 16:08 Freq: NEEDED Status: Active Protocol: Document 03/08/18 14:21 AB (Rec: 03/08/18 16:26 AB [email or web address]) Medical Review Prior Functional Status Medical History Reviewed Yes Communication able to make needs known Mobility and Gait stated that she is modified independent with all mobilities and ambulation without AD Social History Household Members none Living Arrangements House Number of Floors (Floors) One Floor Number of Stairs To Enter/Railing? has a ramp to enter Home Environment High Toilet Tub/Shower Home Equipment Four Wheel Walker Tub Transfer Bench Grab Bars In Shower Employment Status Retired Additional Social History Comment stated that her friend that also lives close by checks on her but cannot assist her. has a transfer pole close to shower area pt has a nurrycane M2 PT-IP Current Condition Start: 03/08/18 16:08 Freq: NEEDED Status: Active Protocol: Document 03/08/18 14:21 AB (Rec: 03/08/18 16:26 AB [email or web address]) Physical Therapy Current Condition Current Condition Evaluation Date 03/08/18 Treatment Diagnosis acute hyponatremia; weakness Onset Date 03/07/18 Precautions Brace pt has a L AFO and built up L shoe Other Precautions falls M3 PT-IP Subjective Start: 03/08/18 16:08 Freq: NEEDED Status: Active Protocol: Document 03/08/18 14:21 AB (Rec: 03/08/18 16:26 AB [email or web address]) Subjective Physical Therapy Visit Type Type Initial Evaluation Visit Start Time 14:21 Visit Stop Time 15:25 Total Visit Minutes 57 Number of SHIPPING/RECEIVING CLERK Visits 0 Physical Therapy Visit Comments Patient Comments pt agreeable to do PT Therapy Pain Assessment Pain When Pain Assessed At Rest Pain Present Pain Present Pain Reported Location Left Thigh Scale Used pain scale not stated Description Tender M4 PT-IP Mobility and Gait Start: 03/08/18 16:08 Freq: NEEDED Status: Active Protocol: Document 03/08/18 14:21 AB (Rec: 03/08/18 16:26 AB [email or web address]) PT-Bed Mobility Assessment Supine to Sit Supine to Sit Minimal Assistance Scooting Scooting to Edge of Bed Minimal Assistance PT-Transfer Assessment Sit to and From Stand Sit to and from Stand Maximum Assistance 1 Person Assistance Use of Upper Extremities Equipment Transfer Assistive Device Gait Belt Front Wheeled Walker Orthotic/Prosthetic Devices or Brace: Yes Transfers Transfer Destination Bedside Commode Transfer Technique Stand Step Pivot Transfer Ability Level of Assist Maximum Assistance 1 Person Assistance Use of Upper Extremities Comments Mobility Comments pt attempted to put shoes and L AFO in sitting position. pt with decrease trunk control and LOB requiring mod to max A for trunk stability and recovery. Pt then assisted with putting shoes and AFO on. attempted sit to stand and pt requiring max A with increase unsteadiness with initial standing and pt with LOB and has to sit back down to bed. attempted again with sit to stand and max cues and pt completed with max A and completed stand sttep pivot transfer to bedside commode using FWW max A and cues and NAC also present assisted pt with brief management. pt has to use bedside commode and requested to sit for a few minutes. checked on pt again and pt agreed to do ambulation. completed sit to stand max A and max cues and stated that she does not think she can walk. pt was able to tolerate ~ 8 sec of standing using FWW for support max A and cues and assisted back down on chair requiring max A for controlled descent. pt agreed to stay up on chair. positioned pt on chair. call light and table placed within reach Gait Assessment Comments Gait Comments able to take a few steps during transfer but unable to ambulate farther. PT-Balance Assessment Sitting Balance and Reactions Static Sitting Balance Ability Fair Dynamic Sitting Balance Ability Poor Standing Balance and Reactions Static Standing Balance Ability Poor Dynamic Standing Balance Ability Poor Device Used FWW M5 PT-IP Objective Assessments Start: 03/08/18 16:08 Freq: NEEDED Status: Active Protocol: Document 03/08/18 14:21 AB (Rec: 03/08/18 16:26 AB [email or web address]) Orientation Orientation/Cognition Level of Alertness Alert Orientation Name Age Birthday Month Date Year Day of Week Place Situation Safety Awareness Decreased Safety Awareness Strength Lower Extremity Strength Assessment Bilaterally Impaired Hip 3+/5 Knee 3+/5 Comments Strength Comments LLE is weaker than RLE M6 PT-IP Treatment Start: 03/08/18 16:08 Freq: NEEDED Status: Active Protocol: Document 03/08/18 14:21 AB (Rec: 03/08/18 16:26 AB [email or web address]) Physical Therapy Treatment Education Education Provided Safety M7 PT-IP Assessment and Plan Start: 03/08/18 16:08 Freq: NEEDED Status: Active Protocol: Document 03/08/18 14:21 AB (Rec: 03/08/18 16:26 AB [email or web address]) PT Summary Assessment and Plan Potential Rehabilitation Potential Fair Status of Condition at Evaluation Evolving Summary Impairments Pain ROM Strength Balance Coordination Sensation Tone Cognition Bed Mobility Transfers Gait Activity Tolerance Assessment Summary pt requiring max A with mobility at this time and unable to ambulate. pt will require SNF rehab to improve strength and mobility. Goals Bed Mobility Goal Standby Assistance Transfer Goal Standby Assistance Gait Goal Standby Assistance Gait Distance 100 Days to Meet Goals 5 Frequency of Treatment Frequency Of Treatment Twice a Day Treatment Plan Physical Therapy Treatment Plan Bed Mobility Training Transfer Training Gait Training Therapeutic Exercise Balance Retraining Post Op Education Discharge Planning Neuromuscular Re-ed Coordination Retraining Manual Therapy Recommendations To Nursing Amount of Assist Needed 2 Person Assist Discharge Recommendations PT Discharge Recommendations SNF Rehab Equipment Needed for Home Before FWW if pt goes home Discharge
--- NOTE | 2018-03-08 14:41 | CM.DANOTE ---
Discharge Planning/Care Management CM Discharge Assessment Start: 03/08/18 14:40 Freq: Status: Active Protocol: Document 03/08/18 14:40 TH (Rec: 03/08/18 14:41 TH [email or web address]) Discharge Planning Assessment Assigned Business Liaison Manager Erin Contreras DPOA/Assigned Designee Name None. Pamphlet given Advance Directives? No History Provided By Patient Has Patient been admitted in last 30 No days? Prior Living Arrangements House Household Members none Type of transporation used prior to Drives own vehicle admit Independent with ADL's Yes Is patient alert and oriented? Yes Caregiver for Another No Barriers to Discharge No Whiteboard Updated in Patient Room with Yes name and ext. # of Business Liaison Manager Review Status In Process Next Review Type Continued Stay Review Patient is a 72 yo female admitted for UTI, weakness, confusion, elevated CPK Insurance: [employer] and [facility] PCP: Dr. Deleon Met with patient at bedside. She alert and oriented and role of manufacturing planner explained. She lives alone in [place] but has many neighbors that she sees or talks with every day - if fact is receiving several phone calls during our conversion. She used SNF and HH in the past after a knee surgery. PT assessment ordered. Her daughter pass away in November. She also has a son who lives in [place]. DPOA pamphlet given. Plan: Discharge home when medically stable.
--- NOTE | 2018-03-08 15:36 | OT.IP.TRT ---
Occupational Therapy Treatment Note M3 OT- IP Subjective and Pain Start: 03/08/18 15:35 Freq: Status: Active Protocol: Document 03/08/18 15:35 [facility] (Rec: 03/08/18 15:36 [facility] [email or web address]) OT- Subjective Occupational Therapy Visit Type Type Administrative Note Notes Pt just got up with PT and therefore would rather do OT eval in the morning. Therefore to see pt tomorrow for OT eval.
--- NOTE | 2018-03-08 15:39 | PM.HP.1 ---
History of Present Illness Chief complaint: Weakness Narrative: Patient is a 72-year-old female who presents with weakness and increased somnolence. Patient states that she was in her usual state health day of admission when she became weak. She states that she did not have an appetite and did not have any oral intake. She note she had not noticed that she was having polyuria. She denied a history of marked free water intake. She has had no increased lower extremity edema nor has she had any increased abdominal girth. She has not had any prior history of liver disease. She denies shortness of breath orthopnea PND. She states that the prior day IgE Sunday she felt well that she was eating normally and that she had walked around her neighborhood a couple of times without any difficulty. She denied diarrhea abdominal pain nausea or vomiting Because of her weakness she presented to the ED. Her blood pressure is 169/81 pulse 67 respirations 20 temperature 97.9?. Her CBC was remarkable for a hemoglobin of 11.9 but this is unchanged from prior hemoglobins. Her Chem panel revealed a sodium of 121, potassium 2.8 chloride 82 BUN 17 creatinine 0.60 glucose 114. Her AST was elevated at 93 and her total CK was 2075. Her TSH was 0.38 Because of her rhabdomyolysis and her hyponatremia she was admitted for further evaluation and management Patient History Medical History Depression (Acute) Hypothyroid (Acute) UTI (urinary tract infection) (Acute) Family & Social History Social History: household members none Prior Living Arrangements House lives independently Yes caregiver/support person No Safety & Behavioral: Feels Safe in Current Yes Environment Been Physically Hurt or No Threatened By a Person Suicidal Ideation Description None Suicide Plan Description No Plan Tobacco & Substance use: Smoking Status Never smoker alcohol intake never Substance Use Type does not use Meds Home Medications Medication Instructions Recorded Confirmed Type meloxicam [Mobic] 15 mg PO QDAY #30 tab 01/20/17 03/08/18 Rx nitrofurantoin monohyd/m-cryst 100 mg PO BID #14 cap 06/16/17 03/08/18 Rx [Macrobid] oxycodone 0 mg PO Q4HP PRN #40 tab 06/19/17 03/08/18 Rx imipramine HCl [Tofranil] 200 mg PO HS #120 tab 07/02/17 03/08/18 Rx levothyroxine 150 mcg capsule 150 mcg PO DAILY 12/18/17 03/08/18 History temazepam 15 mg capsule 15 mg PO BEDTIME #60 cap 02/08/18 03/08/18 Rx bupropion HCl XL 150 mg 24 hr 150 mg PO QAM #30 tab 02/25/18 03/08/18 Rx tablet, extended release Allergies Allergy/AdvReac Type Severity Reaction Status Date / Time ciprofloxacin Allergy Mild Verified 03/07/18 22:39 Sulfa (Sulfonamide Allergy Mild Verified 03/07/18 22:39 Antibiotics) Beta-Blockers Allergy Unknown Verified 03/07/18 22:39 (Beta-Adrenergic Bloc zolpidem [ZOLPIDEM] AdvReac Intermediate MAKES ME Verified 03/07/18 22:39 GOOFY Review of Systems Review of Systems All systems reviewed & are unremarkable except as noted in HPI and below Exam Vital Signs (past 8 hours): - 03/08/18 09:36 Pulse Oximetry 96 Oxygen Delivery Method Room Air Narrative Exam Narrative: General NAD HEENT normocephalic atraumatic extraocular movement were intact pupils were equal round reactive fundi were not visualized sclera were nonicteric oropharynx was clear Neck supple without thyromegaly bruits or jugular venous distension Respiratory clear to auscultation Cardiovascular regular rhythm S1-S2 was normal with no lifts he has rubs murmurs gallops present Abdomen benign bowel sounds active Musculoskeletal: Full range of motion no clubbing edema or cyanosis Neurologic grossly physiologic Psychiatric mood and affect were normal Objective Labs Result Diagrams: 03/08/18 05:55 03/08/18 05:55 Labs: Laboratory Results - last 24 hr 03/07/18 03/07/18 03/07/18 21:31 21:31 21:31 WBC 9.2 RBC 4.12 Hgb 12.8 Hct 36.6 MCV 88.9 MCH 31.1 MCHC 35.0 RDW 13.4 Plt Count 274 Neut % (Auto) 81.1 H Lymph % (Auto) 4.6 L Citrus % (Auto) 13.8 Eos % (Auto) 0.4 L Baso % (Auto) 0.1 Neut # (Auto) 7500 H PT 13.3 H INR 1.2 APTT 30 Sodium 121 L Potassium 2.8 L Chloride 82 L Carbon Dioxide 28 BUN 17 Creatinine 0.60 Estimated GFR > 60.0 BUN/Creatinine Ratio 28.3 H Glucose 114 H Lactate Calcium 10.0 Total Bilirubin 0.9 AST 93 H ALT 44 Alkaline Phosphatase 100 Total Creatine Kinase 2075 H CK-MB (CK-2) 23.60 H CK-MB (CK-2) Rel Index 1.1 L Troponin I 0.102 H Total Protein 7.4 Albumin 4.4 Globulin 3.0 Albumin/Globulin Ratio 1.5 TSH Urine Color Urine Appearance Urine pH Ur Specific [place] Urine Protein Urine Glucose (UA) Urine Ketones Urine Occult Blood Urine Nitrate Urine Bilirubin Urine Urobilinogen Ur Leukocyte Esterase Urine RBC Urine WBC Ur Squamous Epith Cells Urine Bacteria Ur Culture Indicated? Micro UA Comment Salicylates < 1.0 Urine Opiates Screen Ur Oxycodone Screen Urine Methadone Screen Acetaminophen < 10 L Ur Barbiturates Screen U Tricyclic Antidepress Ur Phencyclidine Scrn Ur Amphetamines Screen U Methamphetamines Scrn Ur MDMA Scrn (Ecstasy) U Benzodiazepines Scrn Urine Cocaine Screen U Marijuana (THC) Screen Ethyl Alcohol < 10 03/07/18 03/07/18 03/07/18 21:31 21:31 22:35 WBC RBC Hgb Hct MCV MCH MCHC RDW Plt Count Neut % (Auto) Lymph % (Auto) Citrus % (Auto) Eos % (Auto) Baso % (Auto) Neut # (Auto) PT INR APTT Sodium Potassium Chloride Carbon Dioxide BUN Creatinine Estimated GFR BUN/Creatinine Ratio Glucose Lactate 1.2 Calcium Total Bilirubin AST ALT Alkaline Phosphatase Total Creatine Kinase CK-MB (CK-2) CK-MB (CK-2) Rel Index Troponin I Total Protein Albumin Globulin Albumin/Globulin Ratio TSH 0.38 L Urine Color Urine Appearance Urine pH Ur Specific [place] Urine Protein Urine Glucose (UA) Urine Ketones Urine Occult Blood Urine Nitrate Urine Bilirubin Urine Urobilinogen Ur Leukocyte Esterase Urine RBC Urine WBC Ur Squamous Epith Cells Urine Bacteria Ur Culture Indicated? Micro UA Comment Salicylates Urine Opiates Screen Negative Ur Oxycodone Screen Negative Urine Methadone Screen Negative Acetaminophen Ur Barbiturates Screen Negative U Tricyclic Antidepress Positive H Ur Phencyclidine Scrn Negative Ur Amphetamines Screen Negative U Methamphetamines Scrn Negative Ur MDMA Scrn (Ecstasy) Negative U Benzodiazepines Scrn Positive H Urine Cocaine Screen Negative U Marijuana (THC) Screen Negative Ethyl Alcohol 03/07/18 03/08/18 03/08/18 22:35 05:55 05:55 WBC 7.6 RBC 3.83 L Hgb 11.9 L Hct 34.2 L MCV 89.5 MCH 31.0 MCHC 34.7 RDW 13.6 Plt Count 123 L Neut % (Auto) 78.1 H Lymph % (Auto) 7.6 L Citrus % (Auto) 12.4 Eos % (Auto) 1.6 L Baso % (Auto) 0.3 Neut # (Auto) 6000 H PT INR APTT Sodium 125 L Potassium 3.1 L Chloride 89 L Carbon Dioxide 27 BUN 14 Creatinine 0.60 Estimated GFR > 60.0 BUN/Creatinine Ratio 23.3 H Glucose 95 Lactate Calcium 9.1 Total Bilirubin AST ALT Alkaline Phosphatase Total Creatine Kinase 1095 H D CK-MB (CK-2) CK-MB (CK-2) Rel Index Troponin I Total Protein Albumin Globulin Albumin/Globulin Ratio TSH Urine Color [place] Urine Appearance Slightly cloudy Urine pH 6.0 Ur Specific [place] 1.015 Urine Protein Negative Urine Glucose (UA) Negative Urine Ketones Negative Urine Occult Blood Trace-intact Urine Nitrate Positive H Urine Bilirubin Negative Urine Urobilinogen 0.2 Ur Leukocyte Esterase 2+ H Urine RBC 0-1/hpf Urine WBC 1-5/hpf Ur Squamous Epith Cells 0-1 /hpf Urine Bacteria Many (>30) H Ur Culture Indicated? Not Reportable Micro UA Comment Not Reportable Salicylates Urine Opiates Screen Ur Oxycodone Screen Urine Methadone Screen Acetaminophen Ur Barbiturates Screen U Tricyclic Antidepress Ur Phencyclidine Scrn Ur Amphetamines Screen U Methamphetamines Scrn Ur MDMA Scrn (Ecstasy) U Benzodiazepines Scrn Urine Cocaine Screen U Marijuana (THC) Screen Ethyl Alcohol NO RADIATION PICC STUDIES PERFORMED Assessment & Plan Plan: Assessment/Plan Narrative: 1. Hyponatremia Patient is hyponatremic. She is not on any diuretics. She is on no other medications that would lower her serum sodium. She does have history of hypothyroidism. However doubt that she is significantly hypothyroid at this time but will check her TSH. Full also check her cortisol level. If this was due to an deficiency would expected to be more progressive than acute as it seems to be. Doubt that she has SIDH. Will correct her sodium with normal saline and follow her BUN Plan TSHw/ T4, cortisol soft, serum osmolalities urine osmol urine sodium 2. Rhabdomyolysis Some suspected this is from the patient having been down probably for period of time. She is not on any medications that would lead to increased CK. Her CK has decreased since admission. Will continue to follow her CK Plan Continue IV normal saline Serial CKs 3. Depression Clinically at this time the patient does not seem to be overtly depressed Plan Continue her outpatient anti depressive therapy 4. Hypothyroidism Plan Continue her outpatient thyroid replacement
[2018-03-08] MEDS: SODIUM CHLORIDE 0.9% 1,000 ML 125 ML IV ×2 (16:44→23:04)
[2018-03-08] MEDS: POTASSIUM CHLORIDE 20 MEQ TAB 40 MEQ PO ×2 (17:00→20:54)
[2018-03-08] MEDS: buPROPion XL 150 MG TAB PO (17:00)
[2018-03-08 18:30] LABS: BUN Creatinine Ratio 23.8 (6-22); Blood Urea Nitrogen 19 mg/dL (7-17); Calcium 8.5 mg/dL (8.4-10.2); Carbon Dioxide 28 mmol/L (22-32); Chloride 91 mmol/L (98-107); Cholesterol 191 mg/dL (140-199); Estimated Glomerular Filt Rate > 60.0 mL/min (>60); Glucose 95 mg/dL (80-110); HDL Cholesterol 69 mg/dL (40-60); HEMOLYSIS < 15 (0-50); LDL Cholesterol Calculated 111 mg/dL (<100); Magnesium 1.7 mg/dL (1.6-2.3); Potassium 3.2 mmol/L (3.4-5.1); Sodium 127 mmol/L (137-145); Triglycerides 55 mg/dL (35-150)
[2018-03-08 18:38] LABS: B Type Natriuretic Peptide 51.1 (<100)
[2018-03-08 18:44] LABS: Free T4, Direct Thyroxine 1.43 ng/dL (0.78-2.19)
[2018-03-08 18:58] LABS: Cortisol Random 6.38 ug/dL
[2018-03-08 18:59] LABS: Thyroid Stimulating Hormone 1.36 uIU/mL (0.47-4.68)
[2018-03-08] MEDS: NITROFURANTOIN ER 100 MG CAPSULE PO (20:54)
[2018-03-08] MEDS: IMIPRAMINE HCL 25 MG TABLET 200 MG PO (20:54)
[2018-03-08 22:35] LABS: Sodium Urine Random 22 mmol/L (30-90)
[2018-03-09] VITALS (8 sets, daily range): BP systolic 88–158; BP diastolic 58–82; PULSE 61–69; RESP 18; TEMP 36.4–36.7; O2SAT 92–100
[2018-03-09] MEDS: POTASSIUM CHLORIDE 20 MEQ TAB 40 MEQ PO ×3 (01:55→17:45)
[2018-03-09] MEDS: LEVOTHYROXINE 150 MCG TABLET PO (06:17)
[2018-03-09 06:38] LABS: BUN Creatinine Ratio 23.3 (6-22); Blood Urea Nitrogen 14 mg/dL (7-17); Calcium 8.3 mg/dL (8.4-10.2); Carbon Dioxide 27 mmol/L (22-32); Chloride 97 mmol/L (98-107); Estimated Glomerular Filt Rate > 60.0 mL/min (>60); Glucose 88 mg/dL (80-110); HEMOLYSIS < 15 (0-50); Potassium 3.4 mmol/L (3.4-5.1); Sodium 133 mmol/L (137-145)
[2018-03-09] MEDS: SODIUM CHLORIDE 0.9% 1,000 ML 125 ML IV (06:56)
[2018-03-09] MEDS: NITROFURANTOIN ER 100 MG CAPSULE PO ×2 (08:43→20:35)
[2018-03-09] MEDS: ENOXAPARIN 40 MG/0.4 ML SYRINGE SUBCUT (08:43)
[2018-03-09] MEDS: buPROPion XL 150 MG TAB PO (08:46)
--- NOTE | 2018-03-09 10:50 | CM.DPC ---
Addendum entered by Lindsey Carvajal LPN 03/10/18 13:59: Did confirm during the Team Meeting with UR CHEO Otero that the admission status was INPT as of 03/07/18 Original Note: DCP: continued: Case received, EMR reviewed. Discussed case in morning Team Rounds. PT/OT are recommending snf stay. DR. Valadez is agreeable to same. Met with pt now to discussed. Pt and her friend, at bedside, both agree that a short snf stay would be helpful. Pt notes she is not at her usual independent baseline and needs the medical and physicial recovery process before returning to her independent baseline. Pt does rely on her friend and friend's , who live next door to her to give her prn help and does plan to look into having someone come in to help her with housekeeping and etc after the rehab stay. choice list: given: Pt was at [facility] Jun to October of this year. [facility] with no admission ability tomorrow and plan is for d/c tomorrow. Pt choice: [facility]. Referral: to [facility]. Has bed and will accept. Van transport requested, tentatively for 13OO tomorrow. Pt given [facility] brochure and is updated re the acceptance. Need: PASRR/will complete before tomorrow.
--- NOTE | 2018-03-09 11:10 | PT.IPTN ---
Physical Therapy Treatment Note M2 PT-IP Current Condition Start: 03/08/18 16:08 Freq: NEEDED Status: Active Protocol: Document 03/08/18 14:21 AB (Rec: 03/08/18 16:26 [facility] [email or web address]) Physical Therapy Current Condition Current Condition Evaluation Date 03/08/18 Treatment Diagnosis acute hyponatremia; weakness Onset Date 03/07/18 Precautions Brace pt has a L AFO and built up L shoe Other Precautions falls M3 PT-IP Subjective Start: 03/08/18 16:08 Freq: NEEDED Status: Active Protocol: Document 03/09/18 11:10 GGD (Rec: 03/09/18 11:38 GGD [id number]) Subjective Physical Therapy Visit Type Type Treatment Note Visit Start Time 10:55 Visit Stop Time 11:10 Total Visit Minutes 15 Number of DENTURE CONTOUR WIRE SPECIALIST Visits 1 Physical Therapy Visit Comments Patient Comments Pt want's to walk. M4 PT-IP Mobility and Gait Start: 03/08/18 16:08 Freq: NEEDED Status: Active Protocol: Document 03/09/18 11:10 GGD (Rec: 03/09/18 11:38 GGD [id number]) PT-Bed Mobility Assessment Scooting Scooting to Edge of Bed Contact Guard Assistance PT-Transfer Assessment Sit to and From Stand Sit to and from Stand Contact Guard Assistance 1 Person Assistance Use of Upper Extremities Equipment Transfer Assistive Device Gait Belt Front Wheeled Walker Orthotic/Prosthetic Devices or Brace: Yes Transfers Transfer Destination Chair Gait Assessment Gait Gait Assistance Required: Contact Guard Assist Distance (Feet) 40 Able to Maintain Weight Bearing Status Yes During Gait Assistive Devices Assistive Device Gait Belt Front Wheeled Walker Orthotic/Prosthetic Devices or Brace: Yes Gait Deviations General Gait Pattern Antalgic Decreased Stride Length Decreased Feet Clearance Factors Limiting Gait Function Factors Limiting Gait Function Decreased Activity Tolerance Decreased Strength Poor Balance Poor Safety Awareness Comments Gait Comments Ambulate 40 feet x 2 with seated rest break. M5 PT-IP Objective Assessments Start: 03/08/18 16:08 Freq: NEEDED Status: Active Protocol: Document 03/08/18 14:21 AB (Rec: 03/08/18 16:26 AB [email or web address]) Orientation Orientation/Cognition Level of Alertness Alert Orientation Name Age Birthday Month Date Year Day of Week Place Situation Safety Awareness Decreased Safety Awareness Strength Lower Extremity Strength Assessment Bilaterally Impaired Hip 3+/5 Knee 3+/5 Comments Strength Comments LLE is weaker than RLE M6 PT-IP Treatment Start: 03/08/18 16:08 Freq: NEEDED Status: Active Protocol: Document 03/08/18 14:21 AB (Rec: 03/08/18 16:26 AB [email or web address]) Physical Therapy Treatment Education Education Provided Safety M7 PT-IP Assessment and Plan Start: 03/08/18 16:08 Freq: NEEDED Status: Active Protocol: Document 03/09/18 11:10 GGD (Rec: 03/09/18 11:38 GGD [id number]) PT Summary Assessment and Plan Summary Assessment Summary Pt progressing with mobility. She was able to progress gait distance, but needs FWW. She fatigued quickly and need seated rest break. She is far from base line mobility and gait. She not safe for home D/ C and would benifit from SNF rehab. Frequency of Treatment Frequency Of Treatment Twice a Day Treatment Plan Physical Therapy Treatment Plan Bed Mobility Training Transfer Training Gait Training Therapeutic Exercise Balance Retraining Post Op Education Discharge Planning Neuromuscular Re-ed Coordination Retraining Manual Therapy Recommendations To Nursing Amount of Assist Needed 1 Person Assist Discharge Recommendations PT Discharge Recommendations SNF Rehab
--- NOTE | 2018-03-09 13:04 | OT.IP.EVAL ---
Past Medical History (Last Updated 03/08/18 @ 07:00 by Marely Zuluaga RN) Depression (Acute) Hypothyroid (Acute) UTI (urinary tract infection) (Acute) Occupational Therapy Inpatient Evaluation/Re-Eval M1 PT/OT-IP Prior Functional Status Start: 03/08/18 16:08 Freq: NEEDED Status: Active Protocol: Document 03/09/18 12:50 [facility] (Rec: 03/09/18 13:04 [facility] [email or web address]) Medical Review Prior Functional Status Medical History Reviewed Yes Communication able to make needs known Mobility and Gait stated that she is modified independent with all mobilities and ambulation without AD Social History Household Members none Living Arrangements House Number of Stairs To Enter/Railing? has a ramp to enter Home Environment High Toilet Tub/Shower Home Equipment Four Wheel Walker Tub Transfer Bench Grab Bars In Shower Employment Status Retired Additional Social History Comment stated that her friend that also lives close by checks on her but cannot assist her. has a transfer pole close to shower area pt has a hurrycane. Pt looking to hiring help weekly for IADL needs. M2 OT-IP Current Condition Start: 03/08/18 15:35 Freq: Status: Active Protocol: Document 03/09/18 12:50 [facility] (Rec: 03/09/18 13:04 [facility] [email or web address]) Occupational Therapy Current Condition Current Condition Evaluation Date 03/09/18 Treatment Diagnosis Weakness, hyponatremia Diagnosis Onset Date 03/07/18 Post Operative Precautions Other Precautions falls M3 OT- IP Subjective and Pain Start: 03/08/18 15:35 Freq: Status: Active Protocol: Document 03/09/18 12:50 [facility] (Rec: 03/09/18 13:04 [facility] [email or web address]) OT- Subjective Occupational Therapy Visit Type Type Initial Evaluation Visit Start Time 10:35 Visit Stop Time 11:20 Total Visit Minutes 45 Occupational Therapy Visit Comments Patient Comments Pt agreeable to get up. OT Pain Assessment Pain When Pain Assessed At Rest Pain Present Pain Present Denied Pain M4 OT- IP ADL's Start: 03/08/18 15:35 Freq: Status: Active Protocol: Document 03/09/18 12:50 [facility] (Rec: 03/09/18 13:04 [facility] [email or web address]) OT ADL-Grooming General Evaluation Grooming Ability Standby Assistance Areas Needing Assistance Retrieving/Set-up of Grooming Items Comments OT Grooming Comments Pt having to sit to brush her hair otherwise able to do all grooming while standing after set-up. OT ADL-Oral Care General Eval Oral Care Ability Independent OT ADL-Dressing General Eval Lower Body Dressing Ability Moderate Assistance Areas Needing Assistance Support Stockings Orthosis/Prosthesis Comments OT Dressing Comments Pt needing assist for AFO/ stocking. M5 OT- IP IADL's Start: 03/08/18 15:35 Freq: Status: Active Protocol: Document 03/09/18 12:50 [facility] (Rec: 03/09/18 13:04 [facility] [email or web address]) OT-Instrumental Activities of Daily Living Jig Maker Jig Maker Comments Pt looking to hire assist at home for chores. M6 OT- IP Functional Cognition Start: 03/08/18 15:35 Freq: Status: Active Protocol: Document 03/09/18 12:50 [facility] (Rec: 03/09/18 13:04 [facility] [email or web address]) Cognitive Factors Limiting Selfcare Function Cognitive Ability Level of Alertness Alert Patient Orientation Name Place Situation Attention Span Ability Capable of Focused Attention Capable of Sustained Attention Ability to Follow Commands Able to Follow One Step Commands Memory Description Short Term Impaired Cognitive Comments Cognitive Assessment Comments Pt able to follow simple commands. Pt gets easily distracted and forgetful. OT- Vision and Hearing OT- Hearing Assessment OT- Hearing Assessment WFL M7 OT- IP Mobility and Balance Start: 03/08/18 15:35 Freq: Status: Active Protocol: Document 03/09/18 12:50 [facility] (Rec: 03/09/18 13:04 [facility] [email or web address]) OT-Transfer Assessment Sit to and From Stand Sit to and from Stand Minimal Assistance Transfers Transfer Ability Contact Guard Assistance Minimal Assistance Technique Transfer Destination Chair Transfer Technique Stand Step Pivot Devices Transfer Assistive Devices Gait Belt Front Wheeled Walker Orthotic/Prosthetic Devices or Brace: Yes Comments Mobility Comments Sit to stand from CGA to SIDNEY and assist to help with hand placement at times, as pt tires will require more assist to stand. OT- Balance Assessment Sitting Balance and Reactions Static Sitting Balance Ability Normal Dynamic Sitting Balance Ability Good Standing Balance and Reactions Static Standing Balance Ability Fair Dynamic Standing Balance Ability Poor M8 OT- IP Objective Assessments Start: 03/08/18 15:35 Freq: Status: Active Protocol: Document 03/09/18 12:50 [facility] (Rec: 03/09/18 13:04 [facility] [email or web address]) OT Gross Range of Motion Upper Extremity Range of Motion Assessment Bilaterally Impaired ROM Impairments Pt decreased ROM and has to sit to wash hair in the sink at home due to decreased AROM in shoulders. OT Strength Comments Strength Comments BUE 3+/5 to 4-/5. OT- Coordination Assessment Comments Coordination Comments Pt needing assist to open items for grooming needs. M9 OT- IP Assessment and Plan Start: 03/08/18 15:35 Freq: Status: Active Protocol: Document 03/09/18 12:50 [facility] (Rec: 03/09/18 13:04 [facility] [email or web address]) OT Summary Assessment and Plan Potential Rehabilitation Potential Excellent Analytic Complexity at Evaluation Low Summary OT Impairments Range of Motion Strength Balance Coordination Functional Cognition Functional Mobility Grooming Dressing Toileting Bathing Toilet Transfers Shower Transfers Progress Towards Goals Slow Progress due to Activity Tolerance Slow Progress due to Cognition Assessment Summary Pt Low complexity and main barriers to discharge are decreased activity tolerance and strength, decreased independence with ADl's and functional mobility and now having to use FWW versus prior did not use a device. pt will benefit from short skilled rehab prior to going home. Goals Grooming Goal Standby Assistance Dressing Goal Independent Toileting Goal Independent Bathing Goal Standby Assistance Toilet Transfer Goal Independent Shower Transfer Goal Contact Guard Assistance Patient/Caregiver Education Goal Demonstrate Energy Conservation and Pacing Days to Meet Goals 5 Frequency of Treatment Frequency Of Treatment Once a Day Treatment Plan OT Treatment Plan ADL Training Functional Cognition Training Functional Mobility Patient/Family Education Discharge Planning Discharge Recommendations OT Discharge Recommendations SNF Rehab
--- NOTE | 2018-03-09 15:09 | CM.DPC ---
DCP Cont: DCP received update that pt was asking if [facility] could help transport her to some follow up appointments with her Psychiatrist for med management and weekly grief counseling her in [place] this next week. DCP called Richard, w/e admissions for [facility], and he stated that Medicare is very strict on appointments and amount of time out of SNF and that they can help the pt reschedule any of her appointments and provide supportive services for the pt with their SW in the building. DCP met bedside with the pt while she was working with PT and updated her on above information and pt states she is agreeable with that. Pt also provided permission for DCP to update and talk with her brother or any of her other 5 siblings if they happen to call with questions or concerns. PT had provided family with the extension contact info for DCP earlier today. PASRR completed, need MD signature for exempted d/c. Plan: [facility] to follow for likely pt d/c to [facility] tomorrow if medically stable. signature needed on PASRR. JÚNIOR Johnson
--- NOTE | 2018-03-09 15:10 | PT.IPTN ---
Current Diagnoses Hypo-osmolality and hyponatremia (03/07/18) Physical Therapy Treatment Note M2 PT-IP Current Condition Start: 03/08/18 16:08 Freq: NEEDED Status: Active Protocol: Document 03/08/18 14:21 AB (Rec: 03/08/18 16:26 AB [email or web address]) Physical Therapy Current Condition Current Condition Evaluation Date 03/08/18 Treatment Diagnosis acute hyponatremia; weakness Onset Date 03/07/18 Precautions Brace pt has a L AFO and built up L shoe Other Precautions falls M3 PT-IP Subjective Start: 03/08/18 16:08 Freq: NEEDED Status: Active Protocol: Document 03/09/18 15:10 GGD (Rec: 03/09/18 16:08 GGD [id number]) Subjective Physical Therapy Visit Type Type Treatment Note Visit Start Time 14:20 Visit Stop Time 15:10 Total Visit Minutes 40 Number of LEACH TANK TENDER Visits 2 Physical Therapy Visit Comments Patient Comments Pt states that she needs to use the bathroom. M4 PT-IP Mobility and Gait Start: 03/08/18 16:08 Freq: NEEDED Status: Active Protocol: Document 03/09/18 15:10 GGD (Rec: 03/09/18 16:08 GGD [id number]) PT-Transfer Assessment Sit to and From Stand Sit to and from Stand Contact Guard Assistance 1 Person Assistance Use of Upper Extremities Equipment Transfer Assistive Device Gait Belt Front Wheeled Walker Orthotic/Prosthetic Devices or Brace: Yes Transfers Transfer Destination Toilet Transfer Ability Level of Assist Contact Guard Assistance Use of Upper Extremities Comments Mobility Comments Did able to do all safe care for toileting. Gait Assessment Gait Gait Assistance Required: Contact Guard Assist Distance (Feet) 50 Able to Maintain Weight Bearing Status Yes During Gait Assistive Devices Assistive Device Gait Belt Front Wheeled Walker Orthotic/Prosthetic Devices or Brace: Yes Gait Deviations General Gait Pattern Antalgic Decreased Stride Length Decreased Feet Clearance Factors Limiting Gait Function Factors Limiting Gait Function Decreased Activity Tolerance Decreased Strength Poor Balance M5 PT-IP Objective Assessments Start: 03/08/18 16:08 Freq: NEEDED Status: Active Protocol: Document 03/08/18 14:21 AB (Rec: 03/08/18 16:26 AB [email or web address]) Orientation Orientation/Cognition Level of Alertness Alert Orientation Name Age Birthday Month Date Year Day of Week Place Situation Safety Awareness Decreased Safety Awareness Strength Lower Extremity Strength Assessment Bilaterally Impaired Hip 3+/5 Knee 3+/5 Comments Strength Comments LLE is weaker than RLE M6 PT-IP Treatment Start: 03/08/18 16:08 Freq: NEEDED Status: Active Protocol: Document 03/08/18 14:21 AB (Rec: 03/08/18 16:26 AB [email or web address]) Physical Therapy Treatment Education Education Provided Safety M7 PT-IP Assessment and Plan Start: 03/08/18 16:08 Freq: NEEDED Status: Active Protocol: Document 03/09/18 15:10 GGD (Rec: 03/09/18 16:08 GGD [id number]) PT Summary Assessment and Plan Summary Assessment Summary Pt improving with standing balance. She had no LOB during self care. She does have heavy use for UE for gait with FWW and for sit to stand. She need B UE for standing from toilet. She was unsteady with giat with short stride length. Frequency of Treatment Frequency Of Treatment Twice a Day Treatment Plan Physical Therapy Treatment Plan Bed Mobility Training Transfer Training Gait Training Therapeutic Exercise Balance Retraining Post Op Education Discharge Planning Neuromuscular Re-ed Coordination Retraining Manual Therapy Recommendations To Nursing Amount of Assist Needed 1 Person Assist Discharge Recommendations PT Discharge Recommendations SNF Rehab
--- NOTE | 2018-03-09 16:11 | P.PN_ITS ---
Subjective Interval history: Patient is feeling stronger. She has no nausea and vomiting. There is no shortness of breath chest pain. Per nursing staff she is a two- person assist. Exam Vital Signs (past 8 hours): - 03/09/18 10:25 Blood Pressure 138/75 Oxygen Delivery Method Room Air Oxygen Flow Rate 0 Narrative Exam Narrative: General NAD HEENT normocephalic atraumatic extraocular movement were intact pupils were equal round reactive fundi were not visualized sclera were nonicteric oropharynx was clear Neck supple without thyromegaly bruits or jugular venous distension Respiratory clear to auscultation Cardiovascular regular rhythm S1-S2 was normal with no lifts he has rubs murmurs gallops present Abdomen benign bowel sounds active Musculoskeletal: Full range of motion no clubbing or cyanosis Neurologic grossly physiologic Psychiatric mood and affect were normal Objective Labs Result Diagrams: 03/08/18 05:55 03/09/18 06:14 Labs: Laboratory Results - last 24 hr 03/08/18 03/08/18 03/08/18 17:41 17:41 17:41 Sodium 127 L Potassium 3.2 L Chloride 91 L Carbon Dioxide 28 BUN 19 H Creatinine 0.80 Estimated GFR > 60.0 BUN/Creatinine Ratio 23.8 H Glucose 95 Calcium 8.5 Magnesium 1.7 B-Natriuretic Peptide 51.1 Triglycerides 55 Cholesterol 191 LDL Cholesterol, Calc 111 H HDL Cholesterol 69 H TSH Free T4 1.43 Random Cortisol Ur Random Sodium 03/08/18 03/08/18 03/08/18 17:41 17:41 21:35 Sodium Potassium Chloride Carbon Dioxide BUN Creatinine Estimated GFR BUN/Creatinine Ratio Glucose Calcium Magnesium B-Natriuretic Peptide Triglycerides Cholesterol LDL Cholesterol, Calc HDL Cholesterol TSH 1.36 D Free T4 Random Cortisol 6.38 Ur Random Sodium 22 L 03/09/18 06:14 Sodium 133 L Potassium 3.4 Chloride 97 L Carbon Dioxide 27 BUN 14 Creatinine 0.60 Estimated GFR > 60.0 BUN/Creatinine Ratio 23.3 H Glucose 88 Calcium 8.3 L Magnesium B-Natriuretic Peptide Triglycerides Cholesterol LDL Cholesterol, Calc HDL Cholesterol TSH Free T4 Random Cortisol Ur Random Sodium Assessment & Plan Plan: Assessment/Plan Narrative: 1. Hyponatremia Her hypernatremia is essentially completely normalized with normal saline intravenous fluids. Her sodium today was 133 Her thyroid function studies were within normal limits Her chest x-ray did not reveal any intra pulmonary disease these that would lead to SIADH Plan Discontinue IV fluids BMP in a.m. 2. Hypokalemia Partially repleted potassium is 3.4 today Plan Additional KCl BMP in a.m. 3. Depression Clinically at this time the patient does not seem to be overtly depressed Plan Continue her outpatient anti depressive therapy 4. Hypothyroidism Thyroid replacement is appropriate with TSH and free T4 normal Plan Continue her outpatient thyroid replacement DISPOSITION Based on PT eval is felt that the patient would be best served by being discharged to SNF for rehab Case Management was working on SNF placement
[2018-03-09] MEDS: IMIPRAMINE HCL 25 MG TABLET 200 MG PO (20:35)
[2018-03-09] MEDS: SODIUM CHLORIDE 0.9% FLUSH 10 ML IV (20:35)
--- NOTE | 2018-03-09 21:28 | PC.NURSE ---
SHIFT NOTE confused to date and forgetful but pleasantly cooperative. pt frequently on phone or talking with visitors. generalized weakness, 1PA and FWW to transfer to chair/BSC. denies pain, N/V, dizziness, or SOB. call light within reach.
[2018-03-10] VITALS: BP 152/84; PULSE 67; RESP 19; TEMP 36.7; O2SAT 96
[2018-03-10 04:45] VITALS: BP 159/92; PULSE 65; RESP 18; TEMP 36.5; O2SAT 95
[2018-03-10 05:06] LABS: Blood Urea Nitrogen 14 mg/dL (7-17); Calcium 8.9 mg/dL (8.4-10.2); Carbon Dioxide 30 mmol/L (22-32); Chloride 96 mmol/L (98-107); Estimated Glomerular Filt Rate > 60.0 mL/min (>60); Glucose 90 mg/dL (80-110); HEMOLYSIS < 15 (0-50); Potassium 3.9 mmol/L (3.4-5.1); Sodium 132 mmol/L (137-145)
[2018-03-10] MEDS: CALCIUM CARBONATE 500 MG TAB 1000 MG PO (05:33)
[2018-03-10] MEDS: LEVOTHYROXINE 150 MCG TABLET PO (05:49)
[2018-03-10 07:00] VITALS: O2SAT 97
[2018-03-10 07:58] VITALS: BP 162/100; PULSE 65; RESP 16; TEMP 36.2; O2SAT 92
[2018-03-10 08:01] VITALS: BP 181/94
[2018-03-10] MEDS: buPROPion XL 150 MG TAB PO (08:48)
[2018-03-10] MEDS: NITROFURANTOIN ER 100 MG CAPSULE PO (08:48)
[2018-03-10] MEDS: ENOXAPARIN 40 MG/0.4 ML SYRINGE SUBCUT (08:48)
[2018-03-10] MEDS: NIFEdipine 30 MG TAB ER PO (08:48)
--- NOTE | 2018-03-10 09:56 | P.DS_ITS ---
History of Present Illness Chief complaint: Weakness Narrative: Patient is a 72-year-old female who presents with weakness and increased somnolence. Patient states that she was in her usual state health day of admission when she became weak. She states that she did not have an appetite and did not have any oral intake. She note she had not noticed that she was having polyuria. She denied a history of marked free water intake. She has had no increased lower extremity edema nor has she had any increased abdominal girth. She has not had any prior history of liver disease. She denies shortness of breath orthopnea PND. She states that the prior day IgE Sunday she felt well that she was eating normally and that she had walked around her neighborhood a couple of times without any difficulty. She denied diarrhea abdominal pain nausea or vomiting Because of her weakness she presented to the ED. Her blood pressure is 169/81 pulse 67 respirations 20 temperature 97.9?. Her CBC was remarkable for a hemoglobin of 11.9 but this is unchanged from prior hemoglobins. Her Chem panel revealed a sodium of 121, potassium 2.8 chloride 82 BUN 17 creatinine 0.60 glucose 114. Her AST was elevated at 93 and her total CK was 2075. Her TSH was 0.38 Because of her rhabdomyolysis and her hyponatremia she was admitted for further evaluation and management Discharge Providers Date of admission: 03/07/18 22:31 Primary care physician: Raghavendra Deleon MD Consults: 03/07/18 23:52 Consult to Physician Routine Comment: Consulting Provider: Raz Caceres Reason for consultation: admission Has provider been notified: Yes 03/08/18 10:21 Consult to Occupational Therapy Evaluate & Treat Comment: Physician Instructions: Evaluate and treat Consult to Physical Therapy Evaluate & Treat Comment: Physician Instructions: Evaluate and Treat 03/09/18 09:17 Consult to Physical Therapy Evaluate & Treat Comment: Patient needs eval prior to discharge today Physician Instructions: Evaluate and Treat Discharge provider: Waldo Valadez MD Summary Discharge Diagnosis: 1. Hyponatremia 2. Hypokalemia 3. Depression 4. Hypothyroidismt CONSULTATIONS None PROCEDURES Chest x-ray: Stable appearing convex rightward scoliosis centered at the junction of the middle and left thirds of the thoracic spine. Stable appearing extensive degenerative change at glenohumeral joints bilateral, with progression of distortion over time with reference to prior plain films from 2013 and 2016. No pulmonary mass lesions seen. PERTINENT LABORATORY STUDIES SODIUM ON ADMISSION 121. SODIUM ON DISCHARGE 132 TSH WITHIN NORMAL LIMITS OF 1.36 FREE T4 WITHIN NORMAL LIMITS AT 1.43 RANDOM CORTISOL WITHIN NORMAL LIMITS AT 6.38 Hospital Course: Hyponatremia The patient was admitted to the hospital because of her severe hyponatremia. She was treated with normal saline infusion with improvement of her hyponatremia. It improved from 07/08 on admission to 132 at the time of discharge. Her normal saline had been discontinued the day prior to discharge. She does have a history of hypothyroidism and her thyroid function studies were checked to ensure no problems with hypothyroidism. Her thyroid function studies were completely within normal limits. She did not appear to be fluid overloaded. There was no clinical evidence of congestive heart failure liver disease with ascites and there was no pedal edema. Serum osmolality was sent out but was pending at time of discharge The before 2 not know if the problem is related to hyper osmolar, hypo osmolar or normal osmolar. In regards to normal osmolar the etiologies would be hyperlipidemia her lipid studies did not reveal any such problems. Other causes would be that of hyperproteinemia. There is no evidence of this in that there is no increased gamma spike. As far as hyperosmolar this would be commonly related to markedly elevated glucoses and this is not the case either. Of molasses hypo osmolar and as stated there is nothing to suggest fluid overload from liver failure or congestive heart failure. She is not on any drugs that would cause problems with lowering the body sodium. Labs condition would be concern for syndrome of inappropriate ADH. She could fall into this category as her creatinine is normal her thyroid function studies were normal and her cortisol level is normal. Her serum sodium will need to be followed periodically and if necessary the treatment with the simple fluid restriction may be a benefit. 2. Hypokalemia Her pat testing has been repleted and normalized. Potassium on day of discharge was 3.9 She is not on any diuretic therapy and therefore replacement therapy chronically not given 3. Depression Clinically at this time the patient does not seem to be overtly depressed Continue her outpatient anti depressive therapy 4. Hypothyroidism Thyroid replacement is appropriate with TSH and free T4 normal I will continue her outpatient thyroid replacement Status at Discharge Cognitive/behavioral status at discharge: Patient is completely cognitively intact she was awake alert oriented x4 Functional status at discharge: uses cane/walker Overall status at discharge: patient is not back to baseline Time Spent with Patient Greater than 30 minutes Exam Vital Signs (past 8 hours): - 03/10/18 04:45 03/10/18 07:58 03/10/18 08:01 Temperature 97.7 F 97.2 F L Pulse Rate 65 65 Respiratory Rate 18 16 Blood Pressure 159/92 H 162/100 H 181/94 H Pulse Oximetry 95 92 Oxygen Delivery Method Room Air Oxygen Flow Rate 0 Narrative Exam Narrative: General NAD HEENT normocephalic atraumatic extraocular movement were intact pupils were equal round reactive fundi were not visualized sclera were nonicteric oropharynx was clear Neck supple without thyromegaly bruits or jugular venous distension Respiratory clear to auscultation Cardiovascular regular rhythm S1-S2 was normal with no lifts he has rubs murmurs gallops present Abdomen benign bowel sounds active Musculoskeletal: Full range of motion no clubbing or cyanosis Neurologic grossly physiologic Psychiatric mood and affect were normal Objective Labs Result Diagrams: 03/08/18 05:55 03/10/18 04:42 Labs: Laboratory Results - last 24 hr 03/10/18 04:42 Sodium 132 L Potassium 3.9 Chloride 96 L Carbon Dioxide 30 BUN 14 Creatinine 0.50 L Estimated GFR > 60.0 BUN/Creatinine Ratio 28.0 H Glucose 90 Calcium 8.9 Discharge Plan Discharge Plan Discharge Problem: Acute hyponatremia, Acute hypokalemia, Elevated CPK Patient Disposition: SNF Transfer to: [facility] Transportation: [facility] I certify the postop hospital group home care is medically necessary on a continuing basis for any conditions for which he/ she received care during this hospitalization.: Yes The receiving facility has agreed to accept transfer and provide medical treatment.: Yes Discharge Med Rec/Prescriptions Prescriptions: New bisacodyl 10 mg Suppository 10 mg NC DAILY PRN (Reason: Constipation) Qty: 20 RF: 0 alum-mag hydroxide-simeth [Mag-Al Plus] 200-200-20 mg/5 mL Suspension 30 ml PO Q6HR PRN (Reason: Dyspepsia) Qty: 240 RF: 0 Continue levothyroxine 150 mcg capsule 150 mcg PO DAILY RF: 0 meloxicam [Mobic] 15 MG tablet 15 mg PO QDAY Qty: 30 RF: 2 nitrofurantoin monohyd/m-cryst [Macrobid] 100 MG capsule 100 mg PO BID Qty: 14 RF: 0 oxycodone 5 MG tablet PO Q4HP PRNQty: 40 RF: 0 imipramine HCl [Tofranil] 50 MG tablet 200 mg PO HS Qty: 120 RF: 3 temazepam 15 mg capsule 15 mg PO BEDTIME Qty: 60 RF: 1 bupropion HCl [Wellbutrin XL] 150 mg tablet extended release 24 hr 150 mg PO QAM Qty: 30 RF: 1 Provider Discharge Instructions Diet: Diet as Tolerated Liquid consistency: Normal/Thin Food texture: Regular Diet comment: 1200 cc fluid restriction Activity: Up with assistance [facility] Reason for rehabilitation: Other Rehab type: Physical therapy and Occupational therapy Discharge Data Primary Care Provider: Raghavendra Deleon V Attending Provider: Raz Caceres Admit Date/Time: 03/07/18 22:31
--- NOTE | 2018-03-10 11:07 | PT.IPTN ---
Current Diagnoses Hypo-osmolality and hyponatremia (03/07/18) Physical Therapy Treatment Note M2 PT-IP Current Condition Start: 03/08/18 16:08 Freq: NEEDED Status: Active Protocol: Document 03/08/18 14:21 AB (Rec: 03/08/18 16:26 AB [email or web address]) Physical Therapy Current Condition Current Condition Evaluation Date 03/08/18 Treatment Diagnosis acute hyponatremia; weakness Onset Date 03/07/18 Precautions Brace pt has a L AFO and built up L shoe Other Precautions falls M3 PT-IP Subjective Start: 03/08/18 16:08 Freq: NEEDED Status: Active Protocol: Document 03/10/18 09:57 CLB (Rec: 03/10/18 11:07 CLB [id number]) Subjective Physical Therapy Visit Type Type Treatment Note Visit Start Time 09:57 Visit Stop Time 10:20 Total Visit Minutes 23 Number of GLASSWARE MAKER DEMONSTRATOR Visits 3 Physical Therapy Visit Comments Patient Comments Pt agreeable to do therapy. M4 PT-IP Mobility and Gait Start: 03/08/18 16:08 Freq: NEEDED Status: Active Protocol: Document 03/10/18 09:57 CLB (Rec: 03/10/18 11:07 CLB [id number]) PT-Transfer Assessment Sit to and From Stand Sit to and from Stand Contact Guard Assistance 1 Person Assistance Use of Upper Extremities Equipment Transfer Assistive Device Gait Belt Front Wheeled Walker Orthotic/Prosthetic Devices or Brace: Yes Transfers Transfer Destination Chair Toilet Transfer Ability Level of Assist Contact Guard Assistance Use of Upper Extremities Gait Assessment Gait Gait Assistance Required: Contact Guard Assist Distance (Feet) 75 Able to Maintain Weight Bearing Status Yes During Gait Assistive Devices Assistive Device Gait Belt Front Wheeled Walker Orthotic/Prosthetic Devices or Brace: Yes Gait Deviations General Gait Pattern Antalgic Decreased Stride Length Decreased Feet Clearance Factors Limiting Gait Function Factors Limiting Gait Function Decreased Activity Tolerance Decreased Strength Poor Balance Comments Gait Comments Pt increased gait distance with standing rest breaks x3. M5 PT-IP Objective Assessments Start: 03/08/18 16:08 Freq: NEEDED Status: Active Protocol: Document 03/08/18 14:21 AB (Rec: 03/08/18 16:26 AB [email or web address]) Orientation Orientation/Cognition Level of Alertness Alert Orientation Name Age Birthday Month Date Year Day of Week Place Situation Safety Awareness Decreased Safety Awareness Strength Lower Extremity Strength Assessment Bilaterally Impaired Hip 3+/5 Knee 3+/5 Comments Strength Comments LLE is weaker than RLE M6 PT-IP Treatment Start: 03/08/18 16:08 Freq: NEEDED Status: Active Protocol: Document 03/08/18 14:21 AB (Rec: 03/08/18 16:26 AB [email or web address]) Physical Therapy Treatment Education Education Provided Safety M7 PT-IP Assessment and Plan Start: 03/08/18 16:08 Freq: NEEDED Status: Active Protocol: Document 03/10/18 09:57 CLB (Rec: 03/10/18 11:07 CLB [id number]) PT Summary Assessment and Plan Summary Assessment Summary Pt continues to use UE to assist from sitting. Pt able to increase gait distance and was able to use a step through gait pattern but continues to need CGA for safety. Pt had no LOB during gait or transfers and has good safety awareness. Goals Bed Mobility Goal Standby Assistance Transfer Goal Standby Assistance Gait Goal Standby Assistance Gait Distance 100 Days to Meet Goals 5 Frequency of Treatment Frequency Of Treatment Twice a Day Treatment Plan Physical Therapy Treatment Plan Bed Mobility Training Transfer Training Gait Training Therapeutic Exercise Balance Retraining Post Op Education Discharge Planning Neuromuscular Re-ed Coordination Retraining Manual Therapy Recommendations To Nursing Amount of Assist Needed 1 Person Assist Discharge Recommendations PT Discharge Recommendations SNF Rehab
--- NOTE | 2018-03-10 13:48 | CM.DPC ---
Addendum entered by Lindsey Carvajal LPN 03/10/18 15:19: Received a call from pt just now. She said her friends were asking her [place] [facility] [place] [facility] [place]. Went over the discussions we had and the reasons for same and she readily remembered. She noted her main concern was that she had a weekly grief support counseling [facility] and wondered how she could get there. JÚNIOR Baugh did talk with pt re this yesterday and then followed up with Dilshad/welfare administrator [facility] [place] but am not certain of outcome of that discussion. Agreed to call Dilshad and have him follow up with her when he arrives at the facility tomorrow (Sunday) morning. She expressed thankfulness for same. Called Dilshad then to discuss. He noted he did speak with Lupsi yesterday and with a plan for his social service staff to meet with pt Sunday morning in followup and help her with her options re this appt. Explained her anxiety re this and he agreed to call her now on her cell phone to let her know the specifics of this plan and assure her he would be in tomorrow and would be available to help her in any way during her rehab stay there. Original Note: DCP: continued: DC to snf order was given this morning by Dr. Valadez. Checked in with pt to update her. She was on phone with family and friends discussing her d/c plan and said she felt comfortable with the d/c for today. [facility] was updated and Dilshad set up van transport for 1300. Face/Face: completed yesterday by JÚNIOR Baugh: needed MD signature and this was optained. Orders/DC Summary and PASRR were faxed and pt left as planned at 1300.
[2018-03-11 15:45] LABS: Osmolality, Serum 261 mosm/kg (260-310)
[2018-03-11 15:51] LABS: Osmolality Urine 240 mosm/kg (220-1300)
== END 2018-03-10 13:51 | DRG 641 ==
LOC: ED 22:19 → AC 03-08 07:14
PROVIDERS: Internal Medicine; Admitting Provider Internal Medicine; Emergency Provider Emergency Medicine; Family Provider Internal Medicine; PCP Internal Medicine; Visit Provider Internal Medicine
DX: E87.1 Hypo-osmolality and hyponatremia (principal); N39.0 Urinary tract infection, site not specified; X58.XXXA Exposure to other specified factors, initial encounter; E03.9 Hypothyroidism, unspecified; F32.9 Major depressive disorder, single episode, unspecified; B96.20 Unspecified Escherichia coli [E. coli] as the cause of diseases classified elsewhere
CPT/HCPCS: 36415; 36591; 71045; 80048; 80053; 80061; 80305; 80320; 80329; 81001; 82533; 82550; 82553; 83605; 83735; 83880; 83930; 83935; 84300; 84439; 84443; 84484; 85025; 85610; 85730; 87040; 87077; 87086; 87186; 93005; 96360; 97116; 97162; 97165; 97530; 97535; 99283; 99285; G0480; J1650; J3480